=== PATIENT | female | born 1940 | race Hispanic/Latino ===

== ENCOUNTER → 2024-01-21 | Outpatient (CLI) | payer OTHER, MEDICARE ==
[2024-01-21] MEDS: REGADENOSON 0.4 MG/5 ML PF SYG IVP ONE (12:03)
== END | disposition home or self-care (01) ==
LOC: SHCH 08:21
PROVIDERS: ATTEND Internal Medicine Cardiovascular Disease
DX: R07.9 Chest pain, unspecified (principal)
CPT/HCPCS: 78452; 96374; 93017; J2785; A9500 ×2

== ENCOUNTER 2025-04-28 11:35 | Inpatient (IN) | payer OTHER, MEDICARE ==
[~2025-04-28] VITALS: Ht 162.6 cm; Wt 73.8 kg
[2025-04-28 12:19] LABS: IMMATURE GRANULOCYTE ABSOLUTE 0.02 K/uL (0-1); NUCLEATED RED BLOOD CELLS 0.0 % (0.0-0.19); PLATELET COUNT (AUTO) 176 K/uL (130-400); RED BLOOD CELL COUNT(AUTO) 4.24 MIL/uL (4.00-5.50); RED CELL DISTRIBUTION WIDTH 13.2 % (11.0-15.5); WHITE BLOOD COUNT (AUTO) 6.8 K/uL (4.8-10.8)
[2025-04-28] MEDS: 0.9%NACL 1000ML 1,000 ML IV ONE ×2 (12:25→16:12)
[2025-04-28 12:26] LABS: CREATININE 0.9 mg/dL (0.5-1.0); GLOMERULAR FILTR. RATE CALC 62.0 mL/min (>90); GLUCOSE,RANDOM 128.0 mg/dL (70-105); SODIUM SERUM 141.0 mmol/L (136-145); UREA NITROGEN, BLOOD 12.0 mg/dL (7-18)
[2025-04-28 12:47] LABS: APPEARANCE,URINE CLEAR (CLEAR); GLUCOSE, URINE (UA) NEGATIVE (NEGATIVE); LEUKOCYTE ESTERASE ,URINE NEGATIVE Leu/uL (NEGATIVE); NITRATE,URINE NEGATIVE (NEGATIVE); OCCULT BLOOD,URINE LARGE (NEGATIVE)
[2025-04-28 12:48] LABS: RAPID GROUP A STREP negative (NEGATIVE)
[2025-04-28 12:52] LABS: SARS-CoV-2, RNA, NAAT POSITIVE SARS CoV-2 (NEGATIVE)
[2025-04-28 12:53] LABS: ADD UA MICROSCOPIC YES
[2025-04-28 12:55] LABS: SQUAMOUS EPITHELIAL CELL,UR RARE /HPF (0-2)
[2025-04-28 12:58] LABS: INFLUENZA TYPE A Negative For Type A (NEGATIVE); INFLUENZA TYPE B Negative For Type B (NEGATIVE)
--- NOTE | 2025-04-28 13:20 | ERN ---
General Chief Complaint: Other Problems Stated Complaint: COVID Time Seen by MD: 11:36 Source: patient History of Present Illness Initial Comments Patient is a 84-year-old female coming in to be evaluated for fever and cough. Per patient she was exposed to COVID by several family members. Patient also has been having fever and chills. Allergies: Coded Allergies: No Known Drug Allergies (Unverified Allergy, Unknown, 04/28/25) Past Medical History Past Medical History: Hypertension Past Surgical History: Unknown ROS Dictation CONSTITUTIONAL: No chills, fever, weakness, no diaphoresis, no malaise. HEAD/FACE: No signs of trauma. EENT: No eye pain, no blurred vision, no tearing, no double vision, no ear pain, no ear discharge, no nose pain, no nasal congestion, no throat pain, no throat swelling, no mouth pain. RESPIRATORY: cough, no orthopnea, no SOB, no stridor, no wheezing. CARDIOVASCULAR: No chest pain, no edema, no palpitations, no syncope. GASTROINTESTINAL/ABDOMINAL: No abdominal pain, no constipation, no diarrhea, no nausea, no vomiting. GENITOURINARY: No abnormal discharge, no dysuria, no frequent urination, no hematuria. No complaints of pain in the genitals. MUSCULOSKELETAL: No back pain, no gout, no joint pain, no joint swelling, no muscle pain, no muscle stiffness, no neck pain. INTEGUMENTARY: No change in color, no change in hair/nails, no dryness, no lesion, no lumps, no rash. NEUROLOGICAL/PSYCH: No anxiety, not depressed, no emotional problem, no headache, no numbness, no pre-existing deficit, no history of seizures, no tremors, no weakness. HEMATOLOGIC/LYMPHATIC: Not anemic, no history of blood clots, no apparent bl eeding, no bruising, glands not swollen. All Systems Negative, Except as Noted. Physical Exam Physical Exam Dictation VITAL SIGNS: Reviewed. GENERAL APPEARANCE: Alert, oriented x3, no acute distress, obese. HEAD AND FACE: Non-traumatic. EYES: PERRL, pink conjunctivas, eyelid no trauma, anterior chamber clear. EARS: Pinnas intact and no signs of trauma or erythema. Ear canals clear and no discharge. TMs no erythema. NOSE: No discharge, no bleeding. OROPHARYNX: Mouth normal, teeth no caries, tongue pink. Pharynx clear, no erythema. Tonsils no exudates, no abscesses noted. Mucous membrane moist. NECK: Supple, non-tender, no thyromegaly, no masses, no JVD, no bruits. BREAST: Deferred. CHEST: No tenderness, no crepitus, no paradoxical movement, no retractions. LUNGS: Clear, well-ventilated, symmetric, no rales, no wheezing, no rhonchi, no stridor, good breath sounds bilaterally. HEART: Regular rate, regular rhythm, no murmur, no gallops. VASCULAR: No peripheral edema. ABDOMEN: Soft, positive bowel sounds, nondistended, no guarding, nontender, no rebound, no masses no hepatomegaly, no splenomegaly, no Quiroz's sign, no hernias. RECTAL: Deferred. GENITAL: Deferred. NEUROLOGICAL: Normal speech, gross motor function intact, gross sensory function intact. MUSCULOSKELETAL: Neck nontender, full range of motion, back nontender, full ran ge of motion. EXTREMITIES: Nontender, full range of motion. SKIN: Color pink, dry, no turgor, no rash, no lacerations, no abrasions, no contusions. LYMPHATICS: Deferred. Results Laboratory and Microbiology Lab and Micro Result Laboratory Tests Test 04/28/25 12:00 04/28/25 12:09 04/28/25 12:40 Influenza Type A Antigen Negative For Type A Influenza Type B Antigen Negative For Type B SARS-CoV-2, RNA, NAAT POSITIVE SARS CoV-2 Group A Streptococcus Rapid negative (NEGATIVE) White Blood Count 6.8 K/uL (4.8-10.8) Red Blood Count 4.24 MIL/uL (4.00-5.50) Hemoglobin 13.1 g/dL (12.0-16.0) Hematocrit 39.2 % (36-48) Mean Corpuscular Volume 92.5 fL (79-99) Mean Corpuscular Hemoglobin 30.9 pg (27.0-33.0) Mean Corpuscular Hemoglobin Concent 33.4 g/dL (32.0-36.0) Red Cell Distribution Width 13.2 % (11.0-15.5) Platelet Count 176 K/uL (130-400) Mean Platelet Volume 10.5 fL (7.5-10.5) Immature Granulocyte % (Auto) 0.3 % (0-1) Neutrophils (%) (Auto) 68.0 % (40.0-77.0) Lymphocytes (%) (Auto) 22.5 % (21.0-51.0) Monocytes (%) (Auto) 7.9 % (3.0-13.0) Eosinophils (%) (Auto) 0.7 % (0.0-8.0) Basophils (%) (Auto) 0.6 % (0.0-5.0) Neutrophils # (Auto) 4.6 K/uL (1.8-7.7) Lymphocytes # (Auto) 1.5 K/uL (1.0-4.8) Monocytes # (Auto) 0.5 K/uL (0.1-1.0) Eosinophils # (Auto) 0.05 K/uL (0.00-0.70) Basophils # (Auto) 0.04 K/uL (0.00-0.20) Absolute Immature Granulocyte (auto 0.02 K/uL (0-1) Nucleated Red Blood Cells 0.0 % (0.0-0.19) Sodium Level 141 mmol/L (136-145) Potassium Level 3.5 mmol/L (3.5-5.1) Chloride Level 102 mmol/L (101-111) Carbon Dioxide Level 33 mmol/L (21-32) H Blood Urea Nitrogen 12 mg/dL (7-18) Creatinine 0.9 mg/dL (0.5-1.0) Glomerular Filtration Rate Calc 62 mL/min (>90) Random Glucose 128 mg/dL (70-105) H Total Calcium 9.2 mg/dL (8.5-10.1) Troponin I High Sensitivity 18 ng/L (4-50) Urine Color LIGHT-YELLOW (YELLOW) Urine Appearance CLEAR (CLEAR) Urine pH 7.5 (5.0-8.0) Urine Specific [place] 1.011 (1.001-1.031) Urine Protein NEGATIVE mg/dL (NEGATIVE) Urine Glucose (UA) NEGATIVE mg/dL (NEGATIVE) Urine Ketones NEGATIVE mg/dL (NEGATIVE) Urine Occult Blood LARGE (NEGATIVE) H Urine Nitrate NEGATIVE (NEGATIVE) Urine Bilirubin NEGATIVE mg/dL (NEGATIVE) Urine Urobilinogen 0.2 mg/dL (0.2-1.0) Urine Leukocyte Esterase NEGATIVE Ricky/uL Urine RBC 51-100 /HPF (0-1) H Urine WBC 2-5 /HPF (0-1) H Urine Squamous Epithelial Cells RARE /HPF (0-2) Urine Bacteria RARE /HPF (None Seen) Labs Reviewed?: Yes EKG/XRAY/US/CT/MRI EKG Comment 04/28/2025 time 12:16 p.m. Ventricular rate 92 Sinus rhythm [place] [address] wave elevation or depression X-RAY Comment Chest x-ray-mild pulmonary infiltrates suggestive of pneumonitis MDM MDM: Differential diagnosis: Sepsis, sirs, COVID-19, viral pneumonia, Rationale: Tests considered and ordered secondary to shared decision making include: labs, ECG and radiology Previous outside records reviewed: Old ER visits. Risk of complication and/or morbidity or mortality of patient management: None Medications-Per medication reconciliation Need for hospitalization: Patient does meet criteria for hospitalization. Need for emergency major/minor surgery: No There are no social concerns with this patient. Prescription drug management Prescriptions will include symptomatic care Patient's prior external medical records from other ER visits were reviewed by me as indicated. Prior testing and results from previous visits were reviewed. Prior tests were taken into account with medical decision making and resource utilization, independent historian/historians were used to obtain complete medical history. I independently interpreted the test that were performed, results were reviewed by me and considered findings on radiology if ordered. Medical management and examination interpretation discussions were had by me with other qualified healthcare professionals as indicated for the patient's care. She will be admitted under the care of hospitalist group for ongoing management ED Course Orders Procedure Category Date Status Time Cbc With Differential LAB 04/28/25 Complete 11:51 Troponin I High LAB 04/28/25 Complete Sensitivity 11:51 Urinalysis Profile LAB 04/28/25 Complete 11:51 12 Lead Ekg Tracing- EKG 04/28/25 Complete Technical 11:51 0.9%Nacl 1000ml (Ns PHA 04/28/25 Complete 1000ml) 12:00 Chest 1vw RAD 04/28/25 Resulted 11:51 Basic Metabolic Panel LAB 04/28/25 Complete 11:51 Covid Rna Naat LAB 04/28/25 Complete 11:51 Influenza Type A & B, LAB 04/28/25 Complete Rapid 11:51 Rapid (Group A Strep) LAB 04/28/25 Complete 11:51 Acetaminophen 500mg PHA 04/28/25 Complete Tab (Tylenol 500mg T 13:00 Acetaminophen 500mg PHA 04/28/25 Complete Tab (Tylenol 500mg T 13:00 Current Medications Medications (Trade) Dose Ordered Sig/Denia Route PRN Reason Start Time Stop Time Status Last Admin Dose Admin Acetaminophen (TYLenol 500MG TAB) 500 mg STK-MED ONCE .ROUTE 04/28/25 13:00 04/28/25 13:00 DC Acetaminophen (TYLenol 500MG TAB) 1,000 mg ONCE ONCE PO 04/28/25 13:00 04/28/25 13:01 DC 04/28/25 13:01 Sodium Chloride 1,000 ml @ 0 mls/hr ONCE ONCE IV 04/28/25 12:00 04/28/25 12:03 DC 04/28/25 12:25 Vital Signs Date Time Temp Pulse Resp B/P (MAP) Pulse Ox O2 Delivery O2 Flow Rate FiO2 04/28/25 13:07 102.0 102 18 225/82 97 Room Air* 0 21 04/28/25 11:51 100.0 129 18 129/86 93 Room Air DX & DISP Disposition: Inpatient Decision to Admit Time: 13:42 Departure Impression: Primary Impression: COVID-19 Additional Impression: Viral pneumonitis Condition: Stable Referrals: LOIDA SHERMAN MD (PCP) LISA ZIMMER MD Apr 28, 2025 13:20
--- NOTE | 2025-04-28 13:26 | HMCIMG ---
EXAM: XR Chest, 1 View. CLINICAL HISTORY: 84-year-old female with cough. COMPARISON: XR Chest 09/29/2011. FINDINGS: LUNGS: The lungs are clear. No consolidation. PLEURAL SPACES: No pleural effusion or pneumothorax. HEART: The heart size is moderately enlarged. Moderate cardiomegaly. BONES: No acute osseous abnormality. VASCULATURE: Atherosclerotic changes of the aorta. IMPRESSION: 1. Moderate cardiomegaly, similar to prior study. 2. Atherosclerotic aorta. /[place]
--- NOTE | 2025-04-28 13:33 | EKG ---
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
[2025-04-28] MEDS ORDERED: MAGNESIUM 2GM PREMIX 50ML 50 ML IV PRN (14:30)
[2025-04-28] MEDS ORDERED: PoTASSium chloRIDE 20MEQ ER 20 MEQ ERTAB PO PRN (14:30)
[2025-04-28] MEDS ORDERED: PHARMACY COMMUNICATION MISC SCH (14:30)
[2025-04-28] MEDS ORDERED: ALBUTEROL 0.083% 2.5 MG/3 ML INH IH PRN (14:30)
[2025-04-28] MEDS: FAMOTIDINE 20MG VIAL IV SCH (14:31)
[2025-04-28] MEDS ORDERED: HUM100IN SQ (14:52)
[2025-04-28] MEDS ORDERED: DEXTROSE 50%-WATER 50 ML DISP.SYRIN IV PRN (15:00)
[2025-04-28] MEDS ORDERED: GLUCAGON 1MG KIT 1 MG ML IM PRN (15:00)
[2025-04-28] MEDS ORDERED: NITR0.4T50 SL (15:03)
[2025-04-28] MEDS ORDERED: METO-408 PO (15:03)
[2025-04-28] MEDS ORDERED: LEVO25CA5 PO (15:03)
[2025-04-28] MEDS ORDERED: CAPT25TA3 PO (15:03)
[2025-04-28] MEDS ORDERED: ATOR40TA71 PO (15:03)
[2025-04-28] MEDS ORDERED: HYDR10TA PO (15:06)
[2025-04-28] MEDS ORDERED: HYDR5TAB PO (15:06)
--- NOTE | 2025-04-28 15:14 | HP ---
[facility] HISTORY AND PHYSICAL Date of Service: Apr 28, 2025 Time of Service: 14:48 HISTORY OF PRESENT ILLNESS: Patient is a 84-year-old female with past medical history of hypertension, diabetes mellitus type 2 came to the ED with chief complaint of fever and c ough. Patient started having the symptoms since 2 days. Patient had a family gathering 2 weeks ago from which several members of the family got affected with the similar symptoms. Patient has associated chills and mild trouble breathing. patient denies nausea, vomiting, diarrhea, abdominal pain. Patient have not taken her home medication for hypertension today. On presentation to the ED patient vitals are temperature 102, pulse 102, blood pressure 225/82, saturating at 97% on room air patient's labs show WBCs 6.8, hemoglobin 13.1 And chemistries show sodium 141, potassium 3.5, creatinine 0.9, BUN 12, glucose 128, bicarb 33 Patient SARs CoV2 RNA turned out positive Patient's chest x-ray revealed clear lungs and moderate cardiomegaly Patient is being admitted with a diagnosis of COVID, sepsis, hypertensive urgency REVIEW OF SYSTEMS CONSTITUTIONAL: Denies night sweats. No unintentional weight loss reported. Admits to chills, fevers CARDIOVASCULAR: Denies any exertional angina, dyspnea on exertion, orthopnea, paroxysmal nocturnal dyspnea, palpitations, life-threatening arrhythmias, claudication. PULMONARY: Denies any phlegm/sputum, hemoptysis, pleuritic chest pain. Admits to mild shortness of breath, cough GASTROINTESTINAL: Denies any type of dysphagia to either liquids or solids. Denies nausea, vomiting, pyrosis, early satiety, abdominal pain, diarrhea, c onstipation, or changes in stool consistency or caliber. Denies coffee-ground emesis, hematemesis, hematochezia, or melanotic stools. GENITOURINARY: Denies frequency, urgency, nocturia, hematuria or incontinence (Storage/Irritative symptoms.) Low urinary stream, straining to void, urinary intermittency or hesitancy, splitting of the voiding stream, terminal dribbling. ONCOLOGIC: Denies personal history of malignancy. DERMATOLOGIC: Denies rashes or pruritus. PSYCHIATRIC: Denies any suicidal or homicidal ideation. Denies hallucinations. PAST MEDICAL HISTORY: Hypertension, diabetes mellitus type 2 PAST SURGICAL HISTORY: Cholecystectomy, section, pituitary tumor resection PAST SOCIAL HISTORY: Denies smoking and alcohol FAMILY HISTORY: Noncontributory Coded Allergies: No Known Drug Allergies (Unverified Allergy, Unknown, 04/28/25) ceftriaxone (Verified Allergy, Unknown, 04/28/25) metformin (Verified Allergy, Unknown, 04/28/25) morphine (Verified Allergy, Unknown, 04/28/25) sulfamethoxazole (Verified Allergy, Unknown, 04/28/25) trimethoprim (Verified Allergy, Unknown, 04/28/25) PHYSICAL EXAM GENERAL APPEARANCE: The patient is awake, alert, and oriented, in no acute cardiopulmonary distress. CHEST: Normal chest expansion. Telemetry. LUNGS: Absence of any rales, rhonchi or any wheezing. CARDIOVASCULAR: Regular. S1 and S2 normal. No appreciable rubs, murmurs or gallops. ABDOMEN: Soft, nontender, and nondistended. There is no rebound, voluntary guarding, or rigidity. : Deferred. No Trevino. EXTREMITIES: Non-edematous and not cyanotic. No clubbing. Good capillary refill. SKIN: No skin breakdown. Vital Sign (Last 24 Hours) 04/28/25 13:07 Temp 102.0 Pulse 102 Resp 18 B/P (MAP) 225/82 Pulse Ox 97 O2 Delivery Room Air* O2 Flow Rate 0 FiO2 21 LABS: Laboratory: Test 04/28/25 12:40 04/28/25 12:09 04/28/25 12:00 Range/Units Urine Color LIGHT-YELLOW YELLOW Urine Appearance CLEAR CLEAR Urine pH 7.5 5.0-8.0 Urine Specific [place] 1.011 1.001-1.031 Urine Protein NEGATIVE NEGATIVE mg/dL Urine Glucose (UA) NEGATIVE NEGATIVE mg/dL Urine Ketones NEGATIVE NEGATIVE mg/dL Urine Occult Blood LARGE H NEGATIVE Urine Nitrate NEGATIVE NEGATIVE Urine Bilirubin NEGATIVE NEGATIVE mg/dL Urine Urobilinogen 0.2 0.2-1.0 mg/dL Urine Leukocyte Esterase NEGATIVE NEGATIVE Ricky/uL Urine RBC 51-100 H 0-1 /HPF Urine WBC 2-5 H 0-1 /HPF Urine Squamous Epithelial Cells RARE 0-2 /HPF Urine Bacteria RARE None Seen /HPF White Blood Count 6.8 4.8-10.8 K/uL Red Blood Count 4.24 4.00-5.50 MIL/uL Hemoglobin 13.1 12.0-16.0 g/dL Hematocrit 39.2 36-48 % Mean Corpuscular Volume 92.5 79-99 fL Mean Corpuscular Hemoglobin 30.9 27.0-33.0 pg Mean Corpuscular Hemoglobin Concent 33.4 32.0-36.0 g/dL Red Cell Distribution Width 13.2 11.0-15.5 % Platelet Count 176 130-400 K/uL Mean Platelet Volume 10.5 7.5-10.5 fL Immature Granulocyte % (Auto) 0.3 0-1 % Neutrophils (%) (Auto) 68.0 40.0-77.0 % Lymphocytes (%) (Auto) 22.5 21.0-51.0 % Monocytes (%) (Auto) 7.9 3.0-13.0 % Eosinophils (%) (Auto) 0.7 0.0-8.0 % Basophils (%) (Auto) 0.6 0.0-5.0 % Neutrophils # (Auto) 4.6 1.8-7.7 K/uL Lymphocytes # (Auto) 1.5 1.0-4.8 K/uL Monocytes # (Auto) 0.5 0.1-1.0 K/uL Eosinophils # (Auto) 0.05 0.00-0.70 K/uL Basophils # (Auto) 0.04 0.00-0.20 K/uL Absolute Immature Granulocyte (auto 0.02 0-1 K/uL Nucleated Red Blood Cells 0.0 0.0-0.19 % Sodium Level 141 136-145 mmol/L Potassium Level 3.5 3.5-5.1 mmol/L Chloride Level 102 101-111 mmol/L Carbon Dioxide Level 33 H 21-32 mmol/L Blood Urea Nitrogen 12 7-18 mg/dL Creatinine 0.9 0.5-1.0 mg/dL Glomerular Filtration Rate Calc 62 >90 mL/min Random Glucose 128 H 70-105 mg/dL Total Calcium 9.2 8.5-10.1 mg/dL Troponin I High Sensitivity 18 4-50 ng/L Influenza Type A Antigen Negative For Type A NEGATIVE Influenza Type B Antigen Negative For Type B NEGATIVE SARS-CoV-2, RNA, NAAT POSITIVE SARS CoV-2 *A NEGATIVE Group A Streptococcus Rapid negative NEGATIVE Current Medications Medications (Trade) Dose Ordered Sig/Denia Route PRN Reason Start Time Stop Time Status Last Admin Dose Admin Acetaminophen (TYLenol 500MG TAB) 500 mg Q6H PRN PO TEMPERATURE GREATER THAN 100.5 04/28/25 14:30 05/28/25 14:29 Albuterol Sulfate (Proventil 0.083% 2.5mg/3ml) 2.5 mg [id number] PRN IH RESPIRATORY SYMPTOMS 04/28/25 14:30 05/28/25 14:29 Dexamethasone Sodium Phosphate (dexaMETHasone 4MG/ML 1ML VIAL) 6 mg Q24H IV 04/28/25 14:30 05/28/25 14:29 04/28/25 14:30 6 MG Dextrose (D50w) 50 ml AD PRN IV HYPOGLYCEMIA PROTOCOL 04/28/25 15:00 05/28/25 14:59 Famotidine (Pepcid 20mg Vial) 20 mg Q24H IV 04/28/25 15:00 05/28/25 14:59 04/28/25 14:31 20 MG Glucagon (Glucagon 1mg Kit) 1 mg AD PRN IM HYPOGLYCEMIA PROTOCOL 04/28/25 15:00 05/28/25 14:59 Hydralazine HCl (APRESOLine 20MG INJ) 10 mg ONCE IV 04/28/25 14:30 05/28/25 14:29 04/28/25 14:30 10 MG Hydralazine HCl (APRESOLine 20MG INJ) 10 mg Q6H PRN IV ADMINISTER FOR SBP > 180 04/28/25 18:00 05/28/25 17:59 Insulin Human Regular (humuLIN R 100 UNIT/ML 3ML) INSULIN SLIDING SCAL... ACHS SQ 04/28/25 16:30 05/28/25 16:29 Levofloxacin/ Dextrose 50 ml @ 50 mls/hr Q24H IVPB 04/29/25 15:00 05/09/25 14:59 Levofloxacin/ Dextrose 100 ml @ 100 mls/hr Q24H IV 04/28/25 14:30 04/28/25 14:47 DC Magnesium Sulfate 50 ml @ 0 mls/hr PROTOCOL PRN IV mgprotocol 04/28/25 14:30 05/28/25 14:29 Pharmacy Profile Note (Pharmacy Communication) 1 each ONCE MISC 04/28/25 14:30 04/28/25 14:33 DC Potassium Chloride 100 ml @ 50 mls/hr AD PRN IV POTASSIUM PROTOCOL 04/28/25 14:30 05/28/25 14:29 Potassium Chloride 100 ml @ 100 mls/hr AD PRN IV POTASSIUM PROTOCOL 04/28/25 14:30 05/28/25 14:29 Potassium Chloride (K-Dur/Klor-Con 20meq) 20 meq AD PRN PO POTASSIUM PROTOCOL 04/28/25 14:30 05/28/25 14:29 Potassium Chloride (KCl 10% Elixir 20meq/15ml) 20 meq AD PRN PO POTASSIUM PROTOCOL 04/28/25 14:30 05/28/25 14:29 DIAGNOSTICS / RADIOLOGY: IMAGING REPORT Signed PATIENT: IAN LOW MR#: [id number] : 1940 SEX: F AGE: 84 LOCATION: [facility] ORDER 115 STATUS: REG ER REPORT#: [id number] SERVICE 1151 REASON: cough ORDERING PHYSICIAN: LISA ZIMMER MD PROCEDURE: CXR1VW - CHEST 1VW EXAM: XR Chest, 1 View. CLINICAL HISTORY: 84-year-old female with cough. COMPARISON: XR Chest 09/29/2011. FINDINGS: LUNGS: The lungs are clear. No consolidation. PLEURAL SPACES: No pleural effusion or pneumothorax. HEART: The heart size is moderately enlarged. Moderate cardiomegaly. BONES: No acute osseous abnormality. VASCULATURE: Atherosclerotic changes of the aorta. IMPRESSION: 1. Moderate cardiomegaly, similar to prior study. 2. Atherosclerotic aorta. /[place] DICTATED BY: KANDACE ALVAREZ MD DATE: 04/28/251424 ELECTRONICALLY SIGNED BY: KANDACE ALVAREZ MD DATE: 04/28/251424 ASSESSMENT: Sepsis secondary to COVID Hypertensive urgency Acute hypoxemic respiratory failure Hypertension Diabetes mellitus type 2 Pituitary tumor s/p resection PLAN: Patient being admitted to [facility]U Sepsis Secondary to COVID, acute hypoxemic respiratory failure Pulmonology has been consulted on the case Patient is started on levofloxacin Tylenol order for fever as PRN Tessalon 100 mg caps as p.r.n.. ordered for cough Monitor the a.m. labs Follow up with the ABG Maintain oxygen saturation above 92% Nebulizers and inhalers as required Patient is started on dexamethasone 6 mg Q 24 Pharmacy has been communicated for evaluation of remdesivir requirement Hypertensive urgency Patient has not taken her home medications this morning Hydralazine 10 mg IV administered, we will plan to monitor the blood pressure and resume the home medication Hypertension, diabetes mellitus type2 Medication for hypertension will be resumed Patient is placed on hyperglycemia protocol on 1/ sliding scale Pituitary tumor s/p resection Pt will continue on home dose cortef and levothyroxine. will consider stress do se steroids depending on patients clinical status. Patient is started on soft GI diet We will follow up with pending labs GI prophylaxis with famotidine 20 mg IV b.i.d. DVT prophylaxis with the SCDs Further course of hospitalization depending on pulmonology recommendations and interventions and clinical response ATTESTATION BY PHYSICIAN I have seen and examined the patient. I reviewed the documentation, medical decision making, and treatment plan as noted by the resident provider above. I agree with the findings and plan of care. I agree with A&P as stated above. Briefly this 84 year female who presented to the hospital secondary to generalized maliase, cough. She had sick contacts at home who were COVID positive. Pt moted to be hypoxic and was placed in 3 L NC with improvement. Pt noted to have COVID pneumonia and will be started on [id number]. Will request pharmacy for remdesevir.Her home medications will be reconciled. Pt noted gautam hypertensive on presentation and given hydralzine with improvement. Pt also is on Cortef due to history of pituitary tumor resection. Will consider stress dose steroids depending on patients clinical status. Will obtain pulm consultation. Antoine Charles MD, KEERTI K MD Apr 28, 2025 15:14 ANTOINE CHARLES MD Apr 28, 2025 21:44
[2025-04-28 15:18] LABS: ABG BASE EXCESS 4.1 mmol/L (-2.0-3.0); ABG HCO3 27.3 mmol/L (21.0-28.0); ABG OXYGEN SATURATION 96.0 % (94.0-98.0); ABG PCO2 37 mmHg (32-45); ABG PH 7.491 (7.350-7.450); DEVICE COMMENT LRJUAN; PO2, ARTERIAL BG 74.8 mmHg (83.0-108.0); TEMPERATURE, CELSIUS BG 37.0 CELSIUS (35.5-37.0); VENT MODE, BG NC (ROOM AIR)
[2025-04-28] MEDS ORDERED: LISINOPRIL 10 MG TABLET PO SCH (15:30)
[2025-04-28 15:35] VITALS: RESP 18; O2SAT 96
--- NOTE | 2025-04-28 15:35 | NUR ---
DCP:HOME Pt currently lives with rossi [phone] and son. Pt does not have any DME, home health, or provider services. Pt is able to complete ADLs independently. PCP is Dr. Jones Elias and uses [facility] for any RX needs. At [place] pt will want to go home and family can assist with transportation. Addendum: 04/28/25 at 1538 by ASHLEE ARGUETA SS Amended: Links added.
[2025-04-28 18:58] VITALS: PULSE 84; RESP 18; O2SAT 98
[2025-04-28 20:21] VITALS: BP 110/49; PULSE 80; RESP 18; TEMP 98.1
[2025-04-28] MEDS ORDERED: LISINOPRIL 5 MG TABLET PO SCH (21:00)
[2025-04-28] MEDS: LISINOPRIL 10 MG TABLET PO SCH (21:07)
[2025-04-28] MEDS: PoTASSium chl 10% ELIXIR 20MEQ 20 MEQ/15 ML UDCUP PO PRN (21:13)
[2025-04-28] MEDS: BENZONATATE 100 MG CAPSULE PO PRN (21:36)
[2025-04-29] VITALS (26 sets, daily range): BP systolic 102–200; BP diastolic 41–79; PULSE 69–83; RESP 12–20; TEMP 97.7–98.6; O2SAT 97–100
[2025-04-29 05:50] LABS: IMMATURE GRANULOCYTE ABSOLUTE 0.03 K/uL (0-1); NUCLEATED RED BLOOD CELLS 0.0 % (0.0-0.19); PLATELET COUNT (AUTO) 173 K/uL (130-400); RED BLOOD CELL COUNT(AUTO) 3.96 MIL/uL (4.00-5.50); RED CELL DISTRIBUTION WIDTH 13.0 % (11.0-15.5); WHITE BLOOD COUNT (AUTO) 6.6 K/uL (4.8-10.8)
[2025-04-29 06:10] LABS: CREATININE 1.2 mg/dL (0.5-1.0); GLOMERULAR FILTR. RATE CALC 44.0 mL/min (>90); GLUCOSE,RANDOM 290.0 mg/dL (70-105); SODIUM SERUM 140.0 mmol/L (136-145); UREA NITROGEN, BLOOD 19.0 mg/dL (7-18)
--- NOTE | 2025-04-29 07:00 | NUR ---
ASSUMED PATIENT CARE AT THIS TIME
--- NOTE | 2025-04-29 12:58 | HMCIMG ---
CHEST 1VW REASON: Covid Sepsis;R/o fluid overload COMPARISON: Prior study from 04/28/2025 is available. FINDINGS: Single view of the chest was obtained. Lungs are clear. Heart size is normal. There is uncoiling atherosclerotic change of thoracic aorta. There is no pulmonary vascular congestion. Mediastinum and bony thorax appear unremarkable. The bony thorax demonstrate mild osteopenia. There is elevation of the right hemidiaphragm. There is a surgical clips in the right upper quadrant from prior cholecystectomy. IMPRESSION: 1. No evidence of airspace consolidation or pulmonary venous congestion
--- NOTE | 2025-04-29 15:00 | NUR ---
REPORT GIVEN TO AYANNA RUBIO, FARA SENT UP WITH PATIENT
--- NOTE | 2025-04-29 15:51 | CONS ---
[facility] CONSULTATION NOTE Date Patient Seen: Apr 29, 2025 Time of Visit: 15:48 Supervising Physician: Dr. Carlos Reason for Consultation: COVID PROBLEM LIST: Sepsis secondary to COVID Hypertensive urgency Acute hypoxemic respiratory failure Hypertension Diabetes mellitus type 2 Pituitary tumor s/p resection HPI: Patient is an 84-year-old female with a past medical history significant for hypertension, diabetes mellitus type 2, who was admitted by the primary team for sepsis secondary to COVID. Patient is hypoxic, at the time of my evaluation currently on3 L nasal cannula. Patient denies any chest pain, no cough for sputum production. Patient denies any use of oxygen at home. White count today is 6.6, hemoglobin 12.1, renal function normal at 1.2 creatinine today. Patient has already been started on dexamethasone 6 mg, as well as IV levofloxacin. Nebulizers have been added to the chart PRN. Pharmacy has been consulted for Paxlovid treatment. Plan Continue supplemental O2 Continue levofloxacin Continue dexamethasone 6 mg for 10 days Pending pharmacy consultation for Paxlovid requirement Patient may benefit from home O2 if she is ready to discharge prior to being on room air PRN medication for cough PAST MEDICAL HX: see above PAST SURGICAL HX: noncontributory SOCIAL HISTORY: No tobacco, ETOH, or illicit drug use Coded Allergies: No Known Drug Allergies (Unverified Allergy, Unknown, 04/28/25) ceftriaxone (Verified Allergy, Unknown, 04/28/25) metformin (Verified Allergy, Unknown, 04/28/25) morphine (Verified Allergy, Unknown, 04/28/25) sulfamethoxazole (Verified Allergy, Unknown, 04/28/25) trimethoprim (Verified Allergy, Unknown, 04/28/25) REVIEW OF SYSTEMS: 12 point ROS reviewed with patient. Pertinent positives mentioned above. Otherwise negative. PHYSICAL EXAM: GENERAL: alert, weak, awake oriented x 3 HEENT: EOMI, Sclera non icteric, moist mucosa NECK: Supple, no JVD, trachea midline LUNGS: Clear breath sounds bilaterally. No wheezes HEART: Regular rate and rhythm. Normal S1 and S2, without murmurs ABD: Abdomen soft, nontender. Bowel sounds present EXT: No clubbing cyanosis or edema NEURO: Alert and oriented to person, follows commands Vital Signs (last 8hr) Date Time Temp Pulse Resp B/P (MAP) Pulse Ox O2 Delivery O2 Flow Rate FiO2 04/29/25 15:30 71 18 133/53 98 Nasal Cannula 2.0 04/29/25 15:15 78 18 166/64 98 Nasal Cannula 2.0 04/29/25 15:00 98.6 74 18 200/61 98 Nasal Cannula 2.0 04/29/25 14:42 97.9 70 20 176/65 99 Nasal Cannula* 1 24 04/29/25 12:00 97.9 74 19 144/67 95 Nasal Cannula* 1 24 LABS: Hematology Labs: Test 04/29/25 05:41 04/28/25 12:09 Range/Units White Blood Count 6.6 4.8-10.8 K/uL Red Blood Count 3.96 L 4.00-5.50 MIL/uL Hemoglobin 12.1 12.0-16.0 g/dL Hematocrit 37.2 36-48 % Mean Corpuscular Volume 93.9 79-99 fL Mean Corpuscular Hemoglobin 30.6 27.0-33.0 pg Mean Corpuscular Hemoglobin Concent 32.5 32.0-36.0 g/dL Red Cell Distribution Width 13.0 11.0-15.5 % Platelet Count 173 130-400 K/uL Mean Platelet Volume 10.4 7.5-10.5 fL Immature Granulocyte % (Auto) 0.5 0-1 % Neutrophils (%) (Auto) 76.9 40.0-77.0 % Lymphocytes (%) (Auto) 18.8 L 21.0-51.0 % Monocytes (%) (Auto) 3.6 3.0-13.0 % Eosinophils (%) (Auto) 0.0 0.0-8.0 % Basophils (%) (Auto) 0.2 0.0-5.0 % Neutrophils # (Auto) 5.1 1.8-7.7 K/uL Lymphocytes # (Auto) 1.2 1.0-4.8 K/uL Monocytes # (Auto) 0.2 0.1-1.0 K/uL Eosinophils # (Auto) 0.00 0.00-0.70 K/uL Basophils # (Auto) 0.01 0.00-0.20 K/uL Absolute Immature Granulocyte (auto 0.03 0-1 K/uL Nucleated Red Blood Cells 0.0 0.0-0.19 % Erythrocyte Sedimentation Rate 31 H 0-30 MM/HR Chemistry Labs: Test 04/29/25 15:10 04/29/25 12:41 04/29/25 05:41 04/28/25 12:09 Range/Units Whole Blood Glucose 366 H 70-110 MG/DL B-Type Natriuretic Peptide 132 H 0-100 pg/mL Sodium Level 140 136-145 mmol/L Potassium Level 5.3 H 3.5-5.1 mmol/L Chloride Level 104 101-111 mmol/L Carbon Dioxide Level 31 21-32 mmol/L Blood Urea Nitrogen 19 H 7-18 mg/dL Creatinine 1.2 H 0.5-1.0 mg/dL Glomerular Filtration Rate Calc 44 >90 mL/min Random Glucose 290 #H 70-105 mg/dL Total Calcium 8.6 8.5-10.1 mg/dL Hemoglobin A1c 8.7 H 4.0-6.0 % Estimated Average Glucose (eAG) 203 H 70-126 mg/dL Lactic Acid Level 1.3 0.8-2.5 mmol/L Magnesium Level 1.90 1.80-2.40 mg/dL Troponin I High Sensitivity 18 4-50 ng/L C-Reactive Protein, Quantitative 33.30 H 0.5-3.0 mg/L Procalcitonin < 0.05 L 0.05-0.5 ng/mL Thyroid Stimulating Hormone (TSH) 0.31 L 0.36-3.74 uIU/mL DIAGNOSTICS / RADIOLOGY RESULTS: [ ] PLAN NEURO: Minimize central acting medications as possible. Maintain fall precautions, adequate lighting during the day PULMONARY: Supplemental 02 as needed. Maintain aspiration precautions at all times CARDIOVASCULAR: Follow hemodynamics. Vital signs per facility protocol GI & NUTRITION: Continue with nutritional support. Continue stool softeners and laxatives as needed. KIDNEYS & ELECTROLYTES: Strict monitoring of intake, output and overall fluid balance. Avoid nephrotoxic medications to the extent possible. Medications to be dosed according to renal function. Monitor electrolytes and replace as needed ENDOCRINE: Maintain blood glucose between 100-180 at all times. Hypoglycemia protocol in place INFECTIOUS DISEASE: Trend temperature, WBC and procalcitonin level Follow cultures, deescalate antibiotics as soon as possible. Panculture if new onset fever ONCOLOGY/HEMATOLOGY/COAGULATION: Monitor for s/s of bleeding Monitor hemoglobin, coagulation studies as needed SKIN: Pressure ulcer prevention per facility protocol Specialty mattress ORTHO/REHAB: Continue PT/OT Prophylaxis: Continue GI and DVT prophylaxis Code Status: Full Resuscitation Disposition: TBD Other: Total patient care time exceeds 35 minutes excluding all procedures. MATTHEW HAMPTON Apr 29, 2025 15:51
--- NOTE | 2025-04-29 16:57 | PN ---
[facility] PROGRESS NOTE Date of Service: Apr 29, 2025 Time of Service: 16:31 HISTORY OF PRESENT ILLNESS: Patient is a 84-year-old female with past medical history of hypertension, diabetes mellitus type 2 came to the ED with chief complaint of fever and cough. Patient started having the symptoms since 2 days. Patient had a family gathering 2 weeks ago from which several members of the family got affected with the similar symptoms. Patient has associated chills and mild trouble breathing. patient denies nausea, vomiting, diarrhea, abdominal pain. Patient have not taken her home medication for hypertension today. On presentation to the ED patient vitals are temperature 102, pulse 102, blood pressure 225/82, saturating at 97% on room air patient's labs show WBCs 6.8, hemoglobin 13.1 And chemistries show sodium 141, potassium 3.5, creatinine 0.9, BUN 12, glucose 128, bicarb 33 Patient SARs CoV2 RNA turned out positive Patient's chest x-ray revealed clear lungs and moderate cardiomegaly Patient is being admitted with a diagnosis of COVID, sepsis, hypertensive urgency SUBJECTIVE: [ ] 04/29/2025: Patient was seen and examined today at the bedside. Patient was alert and oriented and was not in apparent distress was using 3 L of oxygen via nasal cannula. Patient complained of fever and cough ongoing for 2 days and several sick contacts in her family who tested positive for COVID-19. Denies chills, body aches, nausea, vomiting, diarrhea, and abdominal pain. Patient's blood pressure was 225/52, temperature 102, pulse 102 upon admission. Was administered IV hydralazine that controlled her blood pressure last night. Later this morning her blood pressure dropped to 95/61 and respiratory rate of 22. Patient was started on her home medications. Patient was weaned off oxygen however her oxygen saturation fell to 95%. She was reinstated on 2 L of oxygen via nasal cannula. A repeat chest x-ray was unremarkable no signs of fluid overload. Pedal edema was noted in bilateral feet and BNP was ordered. 40 mg of p.o. potassium was given as per protocol in the ED and later serum potassium was 5.3, a repeat BMP was ordered. A respiratory therapist evaluation was ordered for 6 minute walk test. REVIEW OF SYSTEMS CONSTITUTIONAL: Denies night sweats. No unintentional weight loss reported. Admits to chills, fevers CARDIOVASCULAR: Denies any exertional angina, dyspnea on exertion, orthopnea, paroxysmal nocturnal dyspnea, palpitations, life-threatening arrhythmias, claudication. PULMONARY: Denies any phlegm/sputum, hemoptysis, pleuritic chest pain. Admits to mild shortness of breath, cough GASTROINTESTINAL: Denies any type of dysphagia to either liquids or solids. Denies nausea, vomiting, pyrosis, early satiety, abdominal pain, diarrhea, constipation, or changes in stool consistency or caliber. Denies coffee-ground emesis, hematemesis, hematochezia, or melanotic stools. GENITOURINARY: Denies frequency, urgency, nocturia, hematuria or incontinence (Storage/Irritative symptoms.) Low urinary stream, straining to void, urinary intermittency or hesitancy, splitting of the voiding stream, terminal dribbling. ONCOLOGIC: Denies personal history of malignancy. DERMATOLOGIC: Denies rashes or pruritus. PSYCHIATRIC: Denies any suicidal or homicidal ideation. Denies hallucinations. PHYSICAL EXAM GENERAL APPEARANCE: The patient is awake, alert, and oriented, in no acute cardiopulmonary distress. CHEST: Normal chest expansion. Telemetry. LUNGS: Absence of any rales, rhonchi or any wheezing. CARDIOVASCULAR: Regular. S1 and S2 normal. No appreciable rubs, murmurs or gallops. ABDOMEN: Soft, nontender, and nondistended. There is no rebound, voluntary g uarding, or rigidity. : Deferred. No Trevino. EXTREMITIES: Non-edematous and not cyanotic. No clubbing. Good capillary refill. SKIN: No skin breakdown. Vital Signs (last 8hr) Date Time Temp Pulse Resp B/P (MAP) Pulse Ox O2 Delivery O2 Flow Rate FiO2 04/29/25 15:30 71 18 133/53 98 Nasal Cannula 2.0 04/29/25 15:15 78 18 166/64 98 Nasal Cannula 2.0 04/29/25 15:00 99 Nasal Cannula* 2 28 04/29/25 15:00 98.6 74 18 200/61 98 Nasal Cannula 2.0 04/29/25 14:42 97.9 70 20 176/65 99 Nasal Cannula* 1 24 04/29/25 12:00 97.9 74 19 144/67 95 Nasal Cannula* 1 24 LABS: Laboratory: Test 04/29/25 15:10 04/29/25 12:41 04/29/25 05:41 04/28/25 15:16 Range/Units Whole Blood Glucose 366 H 70-110 MG/DL B-Type Natriuretic Peptide 132 H 0-100 pg/mL White Blood Count 6.6 4.8-10.8 K/uL Red Blood Count 3.96 L 4.00-5.50 MIL/uL Hemoglobin 12.1 12.0-16.0 g/dL Hematocrit 37.2 36-48 % Mean Corpuscular Volume 93.9 79-99 fL Mean Corpuscular Hemoglobin 30.6 27.0-33.0 pg Mean Corpuscular Hemoglobin Concent 32.5 32.0-36.0 g/dL Red Cell Distribution Width 13.0 11.0-15.5 % Platelet Count 173 130-400 K/uL Mean Platelet Volume 10.4 7.5-10.5 fL Immature Granulocyte % (Auto) 0.5 0-1 % Neutrophils (%) (Auto) 76.9 40.0-77.0 % Lymphocytes (%) (Auto) 18.8 L 21.0-51.0 % Monocytes (%) (Auto) 3.6 3.0-13.0 % Eosinophils (%) (Auto) 0.0 0.0-8.0 % Basophils (%) (Auto) 0.2 0.0-5.0 % Neutrophils # (Auto) 5.1 1.8-7.7 K/uL Lymphocytes # (Auto) 1.2 1.0-4.8 K/uL Monocytes # (Auto) 0.2 0.1-1.0 K/uL Eosinophils # (Auto) 0.00 0.00-0.70 K/uL Basophils # (Auto) 0.01 0.00-0.20 K/uL Absolute Immature Granulocyte (auto 0.03 0-1 K/uL Nucleated Red Blood Cells 0.0 0.0-0.19 % Sodium Level 140 136-145 mmol/L Potassium Level 5.3 H 3.5-5.1 mmol/L Chloride Level 104 101-111 mmol/L Carbon Dioxide Level 31 21-32 mmol/L Blood Urea Nitrogen 19 H 7-18 mg/dL Creatinine 1.2 H 0.5-1.0 mg/dL Glomerular Filtration Rate Calc 44 >90 mL/min Random Glucose 290 #H 70-105 mg/dL Total Calcium 8.6 8.5-10.1 mg/dL Blood Gas Specimen Type Arterial Arterial Blood pH 7.491 H 7.350-7.450 Arterial Blood Partial Pressure CO2 37 32-45 mmHg Arterial Blood Partial Pressure O2 74.8 L 83.0-108.0 mmHg Arterial Blood HCO3 27.3 21.0-28.0 mmol/L Arterial Blood Oxygen Saturation 96.0 94.0-98.0 % Arterial Blood Base Excess 4.1 H -2.0-3.0 mmol/L Blood Gas Temperature 37.0 35.5-37.0 CELSIUS Blood Gas Flow-by 3.00 0.00-15.00 L/min Blood Gas Vent Mode NC ROOM AIR FiO2 32.0 % Blood Gas Specimen Comment LRJUAN Test 04/28/25 12:40 04/28/25 12:09 04/28/25 12:00 Range/Units Urine Color LIGHT-YELLOW YELLOW Urine Appearance CLEAR CLEAR Urine pH 7.5 5.0-8.0 Urine Specific Simon 1.011 1.001-1.031 Urine Protein NEGATIVE NEGATIVE mg/dL Urine Glucose (UA) NEGATIVE NEGATIVE mg/dL Urine Ketones NEGATIVE NEGATIVE mg/dL Urine Occult Blood LARGE H NEGATIVE Urine Nitrate NEGATIVE NEGATIVE Urine Bilirubin NEGATIVE NEGATIVE mg/dL Urine Urobilinogen 0.2 0.2-1.0 mg/dL Urine Leukocyte Esterase NEGATIVE NEGATIVE Ricky/uL Urine RBC 51-100 H 0-1 /HPF Urine WBC 2-5 H 0-1 /HPF Urine Squamous Epithelial Cells RARE 0-2 /HPF Urine Bacteria RARE None Seen /HPF Erythrocyte Sedimentation Rate 31 H 0-30 MM/HR Hemoglobin A1c 8.7 H 4.0-6.0 % Estimated Average Glucose (eAG) 203 H 70-126 mg/dL Lactic Acid Level 1.3 0.8-2.5 mmol/L Magnesium Level 1.90 1.80-2.40 mg/dL Troponin I High Sensitivity 18 4-50 ng/L C-Reactive Protein, Quantitative 33.30 H 0.5-3.0 mg/L Procalcitonin < 0.05 L 0.05-0.5 ng/mL Thyroid Stimulating Hormone (TSH) 0.31 L 0.36-3.74 uIU/mL Influenza Type A Antigen Negative For Type A NEGATIVE Influenza Type B Antigen Negative For Type B NEGATIVE SARS-CoV-2, RNA, NAAT POSITIVE SARS CoV-2 *A NEGATIVE Group A Streptococcus Rapid negative NEGATIVE Current Medications Medications (Trade) Dose Ordered Sig/Denia Route PRN Reason Start Time Stop Time Status Last Admin Dose Admin Acetaminophen (TYLenol 500MG TAB) 500 mg Q6H PRN PO TEMPERATURE GREATER THAN 100.5 04/28/25 14:30 05/28/25 14:29 04/28/25 21:08 500 MG Albuterol Sulfate (Proventil 0.083% 2.5mg/3ml) 2.5 mg [id number] PRN IH RESPIRATORY SYMPTOMS 04/28/25 14:30 05/28/25 14:29 Atorvastatin Calcium (LIPItor 40MG) 40 mg HS PO 04/28/25 21:00 05/28/25 20:59 04/28/25 21:07 40 MG Benzonatate (Tessalon 100mg Caps) 100 mg Q8H PRN PO COUGH 04/28/25 15:30 05/28/25 15:29 04/29/25 09:28 100 MG Dexamethasone Sodium Phosphate (dexaMETHasone 4MG/ML 1ML VIAL) 6 mg Q24H IV 04/28/25 14:30 05/28/25 14:29 04/29/25 15:20 6 MG Dextrose (D50w) 50 ml AD PRN IV HYPOGLYCEMIA PROTOCOL 04/28/25 15:00 05/28/25 14:59 Enoxaparin Sodium (Lovenox) 30 mg DAILY SQ 04/30/25 09:00 05/30/25 08:59 Famotidine (Pepcid 20mg Vial) 20 mg Q24H IV 04/28/25 15:00 05/28/25 14:59 04/29/25 15:20 20 MG Glucagon (Glucagon 1mg Kit) 1 mg AD PRN IM HYPOGLYCEMIA PROTOCOL 04/28/25 15:00 05/28/25 14:59 Home Med (Home Medication) 5 each HS PO 04/28/25 21:00 05/28/25 20:59 04/28/25 21:00 5 EACH Hydralazine HCl (APRESOLine 20MG INJ) 10 mg ONCE IV 04/28/25 14:30 04/28/25 15:54 DC 04/28/25 14:30 10 MG Hydralazine HCl (APRESOLine 20MG INJ) 10 mg Q6H PRN IV ADMINISTER FOR SBP > 180 04/28/25 18:00 05/28/25 17:59 04/29/25 15:23 10 MG Hydrocortisone (corTEF 20MG TAB) 10 mg DAILY PO 04/29/25 09:00 05/29/25 08:59 04/29/25 09:27 10 MG Insulin Human Regular (humuLIN R 100 UNIT/ML 3ML) INSULIN SLIDING SCAL... ACHS SQ 04/28/25 16:30 05/28/25 16:29 04/29/25 15:23 8 UNIT Levofloxacin/ Dextrose 50 ml @ 50 mls/hr Q24H IVPB 04/29/25 15:00 05/09/25 14:59 04/29/25 15:20 50 MLS/HR Levofloxacin/ Dextrose 100 ml @ 100 mls/hr Q24H IV 04/28/25 14:30 04/28/25 14:47 DC Levothyroxine Sodium (SYNTHroid 25MCG TAB) 25 mcg SYN PO 04/29/25 06:30 05/29/25 06:29 04/29/25 06:38 25 MCG Lisinopril (Prinivil 10mg) 10 mg BID PO 04/28/25 15:30 04/28/25 15:50 DC Lisinopril (Prinivil 10mg) 10 mg BID PO 04/28/25 21:00 05/28/25 20:59 Hold 04/28/25 21:07 10 MG Lisinopril (Prinivil 5mg) 5 mg BID PO 04/28/25 21:00 04/28/25 15:24 DC Magnesium Sulfate 50 ml @ 0 mls/hr PROTOCOL PRN IV mgprotocol 04/28/25 14:30 05/28/25 14:29 Metoprolol Succinate (TopROL XL) 25 mg DAILY PO 04/29/25 09:00 05/29/25 08:59 04/29/25 09:28 25 MG Pharmacy Profile Note (Pharmacy Communication) 1 each ONCE MISC 04/28/25 14:30 04/28/25 14:33 DC Potassium Chloride 100 ml @ 50 mls/hr AD PRN IV POTASSIUM PROTOCOL 04/28/25 14:30 05/28/25 14:29 Potassium Chloride 100 ml @ 100 mls/hr AD PRN IV POTASSIUM PROTOCOL 04/28/25 14:30 05/28/25 14:29 Potassium Chloride (K-Dur/Klor-Con 20meq) 20 meq AD PRN PO POTASSIUM PROTOCOL 04/28/25 14:30 05/28/25 14:29 Potassium Chloride (KCl 10% Elixir 20meq/15ml) 20 meq AD PRN PO POTASSIUM PROTOCOL 04/28/25 14:30 05/28/25 14:29 04/28/25 23:20 20 MEQ DIAGNOSTICS / RADIOLOGY: [ ] PATIENT: IAN LOW MR#: [id number] : 1940 SEX: F AGE: 84 LOCATION: [facility] ORDER 122 STATUS: ADM IN REPORT#: [id number] SERVICE [id number] REASON: Covid Sepsis;R/o fluid overload ORDERING PHYSICIAN: DANIKA HUDSON MD PROCEDURE: CXR1VW - CHEST 1VW CHEST 1VW REASON: Covid Sepsis;R/o fluid overload COMPARISON: Prior study from 04/28/2025 is available. FINDINGS: Single view of the chest was obtained. Lungs are clear. Heart size is normal. There is uncoiling atherosclerotic change of thoracic aorta. There is no pulmonary vascular congestion. Mediastinum and bony thorax appear unremarkable. The bony thorax demonstrate mild osteopenia. There is elevation of the right hemidiaphragm. There is a surgical clips in the right upper quadrant from prior cholecystectomy. IMPRESSION: 1. No evidence of airspace consolidation or pulmonary venous congestion DICTATED BY: ELMIRA BELTRE MD DATE: 04/29/251253 ELECTRONICALLY SIGNED BY: ELMIRA BELTRE MD DATE: 04/29/251257 ASSESSMENT: Sepsis secondary to COVID Hypertensive urgency Acute hypoxemic respiratory failure Hypertension Diabetes mellitus type 2 Pituitary tumor s/p resection PLAN: Patient being admitted to [facility] Sepsis Secondary to COVID, acute hypoxemic respiratory failure Pulmonology has been consulted on the case Patient is started on levofloxacin Tylenol order for fever as PRN Tessalon 100 mg caps as p.r.n.. ordered for cough Monitor the a.m. labs Follow up with the ABG Maintain oxygen saturation above 92% Nebulizers and inhalers as required Patient is started on dexamethasone 6 mg Q 24 Pharmacy has been communicated for evaluation of remdesivir requirement RT evaluation ordered for 6 minute walk test Hypertensive urgency Patient has not taken her home medications this morning Hydralazine 10 mg IV administered Hypertension, diabetes mellitus type2 Continue lisinopril 10 mg b.i.d. Medication for hypertension will be resumed Patient is placed on hyperglycemia protocol on / sliding scale Pituitary tumor s/p resection Pt will continue on home dose levothyroxine. Start Cortef 20 mg once daily Patient is started on soft GI diet We will follow up with pending labs GI prophylaxis with famotidine 20 mg IV b.i.d. DVT prophylaxis with the SCDs Further course of hospitalization depending on pulmonology recommendations and interventions and clinical response ATTESTATION BY PHYSICIAN I have seen and examined the patient. I reviewed the documentation, medical decision making, and treatment plan as noted by the resident provider above. I agree with the findings and plan of care. JANET LI MD, HARSHAVARDHA MD Apr 29, 2025 16:57
[2025-04-29 18:46] LABS: CREATININE 1.0 mg/dL (0.5-1.0); GLOMERULAR FILTR. RATE CALC 55.0 mL/min (>90); GLUCOSE,RANDOM 323.0 mg/dL (70-105); SODIUM SERUM 139.0 mmol/L (136-145); UREA NITROGEN, BLOOD 23.0 mg/dL (7-18)
[2025-04-30] VITALS (21 sets, daily range): BP systolic 102–186; BP diastolic 44–80; PULSE 67–86; RESP 9–32; TEMP 97.8–98.4; O2SAT 94–98
[2025-04-30 04:32] LABS: CREATINE KINASE, TOTAL 141.0 U/L (21-232); PHOSPHORUS 2.9 mg/dL (2.5-4.9)
[2025-04-30] MEDS: ENOXAPARIN SODIUM 30 MG/0.3 ML SQ SCH (08:24)
--- NOTE | 2025-04-30 08:41 | PN ---
[facility] PROGRESS NOTE Date Patient Seen: Apr 30, 2025 Time of Visit: 08:41 Supervising Physician: Angel Carlos MD Supervising Physician: Dr. Carlos Reason for Consultation: COVID PROBLEM LIST: Sepsis secondary to COVID Hypertensive urgency Acute hypoxemic respiratory failure Hypertension Diabetes mellitus type 2 Pituitary tumor s/p resection INTERVAL HISTORY: Date of admission: 04/28/25 Hospital Day: 2. PCCU status Code status: Full code Nutrition: GI soft diet Isolation: COVID isolation Overnight events: No acute events overnight. Cardene has been turned off. Blood pressure improving. Decadron has been discontinued and Patient is on hydrocortisone 85 mg p.o. 3 times a day per [employer] team member. We will follow his recommendations. Patient's glucose has been elevated with a max of 338 mg/dL this morning, added Lantus 10 units subQ b.i.d. Patient is not on supplemental O2 support. Currently at room air saturating 97% respiratory rate of 16 unlabored. Subjective complaints: She is awake alert and oriented x3. Denies any chest pain, headache, palpitations, or shortness for breath. There is no family at the bedside at the time of my visit. She may be downgraded to medical-surgical floor. REVIEW OF SYSTEMS: General: No malaise or fever. Neurological: No fainting episodes or seizures. HEENT: No nasal congestion or nasal secretion. Respiratory: No cough, shortness of breath, or wheezing Cardiac: No chest pain or palpitations. Gastrointestinal: No vomiting or diarrhea. Genitourinary: No dysuria hematuria. Skin: No rashes or lesions. Hematological: No bruises or bleeding. Musculoskeletal: No joint pains or arthralgias. Psychiatric: No depression or panic attacks. PHYSICAL EXAM: GENERAL: alert, weak, awake oriented x 3 HEENT: EOMI, Sclera non icteric, moist mucosa NECK: Supple, no JVD, trachea midline LUNGS: Clear breath sounds bilaterally. No wheezes HEART: Regular rate and rhythm. Normal S1 and S2, without murmurs ABD: Abdomen soft, nontender. Bowel sounds present EXT: No clubbing cyanosis or edema NEURO: Alert and oriented to person, follows commands Vital Signs (last 8hr) Date Time Temp Pulse Resp B/P (MAP) Pulse Ox O2 Delivery O2 Flow Rate FiO2 04/30/25 06:30 79 18 N/Cannula Low lpm 3.0 32 8/15/25 04:41 69 14 152/55 100 Nasal Cannula 2.0 04/30/25 04:00 98.2 67 15 99 04/30/25 03:41 75 20 168/64 99 Nasal Cannula 2.0 04/30/25 03:00 69 28 99 04/30/25 02:41 71 32 147/60 99 Nasal Cannula 2.0 04/30/25 02:11 70 15 168/61 99 Nasal Cannula 2.0 04/30/25 02:00 74 14 98 04/30/25 01:00 69 14 99 04/30/25 00:56 71 18 142/55 99 LABS: Hematology Labs: Test 04/29/25 05:41 04/28/25 12:09 Range/Units White Blood Count 6.6 4.8-10.8 K/uL Red Blood Count 3.96 L 4.00-5.50 MIL/uL Hemoglobin 12.1 12.0-16.0 g/dL Hematocrit 37.2 36-48 % Mean Corpuscular Volume 93.9 79-99 fL Mean Corpuscular Hemoglobin 30.6 27.0-33.0 pg Mean Corpuscular Hemoglobin Concent 32.5 32.0-36.0 g/dL Red Cell Distribution Width 13.0 11.0-15.5 % Platelet Count 173 130-400 K/uL Mean Platelet Volume 10.4 7.5-10.5 fL Immature Granulocyte % (Auto) 0.5 0-1 % Neutrophils (%) (Auto) 76.9 40.0-77.0 % Lymphocytes (%) (Auto) 18.8 L 21.0-51.0 % Monocytes (%) (Auto) 3.6 3.0-13.0 % Eosinophils (%) (Auto) 0.0 0.0-8.0 % Basophils (%) (Auto) 0.2 0.0-5.0 % Neutrophils # (Auto) 5.1 1.8-7.7 K/uL Lymphocytes # (Auto) 1.2 1.0-4.8 K/uL Monocytes # (Auto) 0.2 0.1-1.0 K/uL Eosinophils # (Auto) 0.00 0.00-0.70 K/uL Basophils # (Auto) 0.01 0.00-0.20 K/uL Absolute Immature Granulocyte (auto 0.03 0-1 K/uL Nucleated Red Blood Cells 0.0 0.0-0.19 % Erythrocyte Sedimentation Rate 31 H 0-30 MM/HR Chemistry Labs: Test 04/30/25 08:09 04/30/25 03:59 04/29/25 17:35 04/29/25 12:41 Range/Units Whole Blood Glucose 338 H 70-110 MG/DL Phosphorus Level 2.9 2.5-4.9 mg/dL Magnesium Level 2.30 1.80-2.40 mg/dL Total Creatine Kinase 141 21-232 U/L Sodium Level 139 136-145 mmol/L Potassium Level 4.4 3.5-5.1 mmol/L Chloride Level 104 101-111 mmol/L Carbon Dioxide Level 29 21-32 mmol/L Blood Urea Nitrogen 23 H 7-18 mg/dL Creatinine 1.0 0.5-1.0 mg/dL Glomerular Filtration Rate Calc 55 >90 mL/min Random Glucose 323 H 70-105 mg/dL Total Calcium 9.0 8.5-10.1 mg/dL B-Type Natriuretic Peptide 132 H 0-100 pg/mL Test 04/28/25 12:09 Range/Units Hemoglobin A1c 8.7 H 4.0-6.0 % Estimated Average Glucose (eAG) 203 H 70-126 mg/dL Lactic Acid Level 1.3 0.8-2.5 mmol/L Troponin I High Sensitivity 18 4-50 ng/L C-Reactive Protein, Quantitative 33.30 H 0.5-3.0 mg/L Procalcitonin < 0.05 L 0.05-0.5 ng/mL Thyroid Stimulating Hormone (TSH) 0.31 L 0.36-3.74 uIU/mL DIAGNOSTICS / RADIOLOGY RESULTS: [place] [address] [address] IMAGING REPORT Signed PATIENT: IAN CARLOS MR#: [id number] : 1940 SEX: F AGE: 84 LOCATION: [facility] ORDER 1221 STATUS: ADM IN REPORT#: [id number] SERVICE 1217 REASON: Covid Sepsis;R/o fluid overload ORDERING PHYSICIAN: DANIKA HUDSON MD PROCEDURE: CXR1VW - CHEST 1VW CHEST 1VW REASON: Covid Sepsis;R/o fluid overload COMPARISON: Prior study from 04/28/2025 is available. FINDINGS: Single view of the chest was obtained. Lungs are clear. Heart size is normal. There is uncoiling atherosclerotic change of thoracic aorta. There is no pulmonary vascular congestion. Mediastinum and bony thorax appear unremarkable. The bony thorax demonstrate mild osteopenia. There is elevation of the right hemidiaphragm. There is a surgical clips in the right upper quadrant from prior cholecystectomy. IMPRESSION: 1. No evidence of airspace consolidation or pulmonary venous congestion DICTATED BY: ELMIRA BELTRE MD DATE: 04/29/251253 ELECTRONICALLY SIGNED BY: ELMIRA BELTRE MD DATE: 04/29/251257 PLAN NEURO: Minimize central acting medications as possible. Fall Precautions. Well lighted room through the day and minimize interruptions through the night to prevent acute delirium. PULMONARY: Supplemental 02 as needed Titrate Fio2 to keep Spo2 > or = 90% DuoNebs and CPT as needed IS hourly while awake for pulmonary hygiene Out of bed to chair as tolerated CARDIOVASCULAR: Follow hemodynamics. Titrate vasopressor to keep MAP >65 or systolic blood pressure >95mmHg DRIPS: none LINES: PIV GI & NUTRITION: Continue nutritional support Aspirations precautions Prokinetic agents and laxatives as needed KIDNEYS & ELECTROLYTES: Strict monitoring of intake and output Daily weights Avoid nephrotoxic agents Monitor electrolytes and replace as needed Goal urine output of 30mL/hr or 0.5mL/kg/hr ENDOCRINE: Maintain blood glucose between 100-180 at all times. Insulin sliding scale for blood glucose management INFECTIOUS DISEASE: Trend temperature. Ott-culture if febrile. Micro: COVID-19 positive Antibiotics: Levaquin HEMATOLOGY & COAGULATION: Monitor H&H. Keep Hgb > 7 Transfuse 1 unit of PRBC for Hgb < 7 Transfuse 1 pack of platelets of platelets < 20, 000 Watch for any signs and symptoms of bleeding SKIN: Pressure ulcer prevention per facility protocol Rehab: PT/OT Prophylaxis: GI: Pepcid DVT: Lovenox Code Status: Full Resuscitation Disposition: Medical floor Other: Total patient care time exceeds 35 minutes excluding all procedures. Case was discussed and seen with my supervising physician. The above plan was formulated and agreed upon. ATTESTATION BY PHYSICIAN The patient has been seen and evaluated, the case has been discussed with the COST RECORDER, I agree with the clinical findings and plan of care. Angel Carlos MD, [facility] Apr 30, 2025 08:41
[2025-04-30] MEDS: amLODIPine 5 MG TAB PO SCH (08:53)
[2025-04-30] MEDS: LISINOPRIL 10 MG TABLET PO SCH ×2 (08:53→20:23)
--- NOTE | 2025-04-30 09:46 | NUR ---
[facility] ICU Skin Assessment: Patient assessed by wound healing team. Patient with no wounds or skin breakdown noted, blanchable redness to buttocks. Assessment and recommendations provided to primary nurse. Education provided. Addendum: 04/30/25 at 1106 by ELOINA BEJARANO RN RN/ Amended: Links added.
--- NOTE | 2025-04-30 11:46 | NUR ---
consulted dr maria a wright via telephone message left with analytical research program manager wally no orders were given as per wally she would let dr saha about his new consult for patient in room 217
--- NOTE | 2025-04-30 13:07 | PN ---
[facility] PROGRESS NOTE Date of Service: Apr 30, 2025 Time of Service: 12:47 HISTORY OF PRESENT ILLNESS: Patient is a 84-year-old female with past medical history of hypertension, diabetes mellitus type 2 came to the ED with chief complaint of fever and cough. Patient started having the symptoms since 2 days. Patient had a family gathering 2 weeks ago from which several members of the family got affected with the similar symptoms. Patient has associated chills and mild trouble breathing. patient denies nausea, vomiting, diarrhea, abdominal pain. Patient have not taken her home medication for hypertension today. On presentation to the ED patient vitals are temperature 102, pulse 102, blood pressure 225/82, saturating at 97% on room air patient's labs show WBCs 6.8, hemoglobin 13.1 And chemistries show sodium 141, potassium 3.5, creatinine 0.9, BUN 12, glucose 128, bicarb 33 Patient SARs CoV2 RNA turned out positive Patient's chest x-ray revealed clear lungs and moderate cardiomegaly Patient is being admitted with a diagnosis of COVID, sepsis, hypertensive urgency SUBJECTIVE: [ ] 04/29/2025: Patient was seen and examined today at the bedside. Patient was alert and oriented and was not in apparent distress was using 3 L of oxygen via nasal cannula. Patient complained of fever and cough ongoing for 2 days and several sick contacts in her family who tested positive for COVID-19. Denies chills, body aches, nausea, vomiting, diarrhea, and abdominal pain. Patient's blood pressure was 225/52, temperature 102, pulse 102 upon admission. Was administered IV hydralazine that controlled her blood pressure last night. Later this morning her blood pressure dropped to 95/61 and respiratory rate of 22. Patient was started on her home medications. Patient was weaned off oxygen however her oxygen saturation fell to 95%. She was reinstated on 2 L of oxygen via nasal cannula. A repeat chest x-ray was unremarkable no signs of fluid overload. Pedal edema was noted in bilateral feet and BNP was ordered. 40 mg of p.o. potassium was given as per protocol in the ED and later serum potassium was 5.3, a repeat BMP was ordered. A respiratory therapist evaluation was ordered for 6 minute walk test. 04/30/2025: Patient was seen and evaluated at the bedside. Patient was alert and oriented, using 2L of oxygen via nasal cannula. Patient is saturating well at 95%. Patient had persistently elevated hypertension for which a dose of hydralazine was administered. She was reinstated on her home blood pressure medications with lisinopril, amlodipine, metoprolol. Patient was weaned off oxygen and her saturation was maintained when awake however when the patient was asleep her oxygen drops to 89-90% without oxygen. Patient is status post pituitary resection on Cortef 15 mg at home. Due to the acute stress due to COVID, hospitalization we initiated stress dose of Cortef 75 mg divided into 3 doses in a day. Dexamethasone was stopped. Urinalysis showed large occult blood, negative for leukocyte esterase and pus cells. We ordered a CT abdomen and pelvis. Today an endocrinology consult was placed. Patient will also be evaluated by respiratory therapist with a 6 minute walk test and we will consider her for discharge. REVIEW OF SYSTEMS CONSTITUTIONAL: Denies night sweats. No unintentional weight loss reported. Admits to chills, fevers, now improved. CARDIOVASCULAR: Denies any exertional angina, dyspnea on exertion, orthopnea, paroxysmal nocturnal dyspnea, palpitations, life-threatening arrhythmias, pat dication. PULMONARY: Denies any phlegm/sputum, hemoptysis, pleuritic chest pain. Admits to mild shortness of breath, cough, improved GASTROINTESTINAL: Denies any type of dysphagia to either liquids or solids. Denies nausea, vomiting, pyrosis, early satiety, abdominal pain, diarrhea, constipation, or changes in stool consistency or caliber. Denies coffee-ground emesis, hematemesis, hematochezia, or melanotic stools. GENITOURINARY: Denies frequency, urgency, nocturia, hematuria or incontinence (Storage/Irritative symptoms.) Low urinary stream, straining to void, urinary intermittency or hesitancy, splitting of the voiding stream, terminal dribbling. ONCOLOGIC: Denies personal history of malignancy. DERMATOLOGIC: Denies rashes or pruritus. PSYCHIATRIC: Denies any suicidal or homicidal ideation. Denies hallucinations. PHYSICAL EXAM GENERAL APPEARANCE: The patient is awake, alert, and oriented, in no acute cardiopulmonary distress. CHEST: Normal chest expansion. Telemetry. LUNGS: Absence of any rales, rhonchi or any wheezing. CARDIOVASCULAR: Regular. S1 and S2 normal. No appreciable rubs, murmurs or gallops. ABDOMEN: Soft, nontender, and nondistended. There is no rebound, voluntary guarding, or rigidity. : Deferred. No Trevino. EXTREMITIES: Non-edematous and not cyanotic. No clubbing. Good capillary refill. SKIN: No skin breakdown. Vital Signs (last 8hr) Date Time Temp Pulse Resp B/P (MAP) Pulse Ox O2 Delivery O2 Flow Rate FiO2 04/30/25 09:00 74 14 127/49 95 Nasal Cannula 2.0 04/30/25 08:00 97 Nasal Cannula* 2 28 04/30/25 08:00 97.9 75 15 175/66 99 Nasal Cannula 2.0 04/30/25 07:00 86 18 186/80 98 Nasal Cannula 2.0 04/30/25 06:30 79 18 N/Cannula Low lpm 3.0 32 LABS: Laboratory: Test 04/30/25 12:23 04/30/25 03:59 04/29/25 17:35 04/29/25 12:41 Range/Units Whole Blood Glucose 293 H 70-110 MG/DL Phosphorus Level 2.9 2.5-4.9 mg/dL Magnesium Level 2.30 1.80-2.40 mg/dL Total Creatine Kinase 141 21-232 U/L Sodium Level 139 136-145 mmol/L Potassium Level 4.4 3.5-5.1 mmol/L Chloride Level 104 101-111 mmol/L Carbon Dioxide Level 29 21-32 mmol/L Blood Urea Nitrogen 23 H 7-18 mg/dL Creatinine 1.0 0.5-1.0 mg/dL Glomerular Filtration Rate Calc 55 >90 mL/min Random Glucose 323 H 70-105 mg/dL Total Calcium 9.0 8.5-10.1 mg/dL B-Type Natriuretic Peptide 132 H 0-100 pg/mL Test 04/29/25 05:41 04/28/25 15:16 Range/Units White Blood Count 6.6 4.8-10.8 K/uL Red Blood Count 3.96 L 4.00-5.50 MIL/uL Hemoglobin 12.1 12.0-16.0 g/dL Hematocrit 37.2 36-48 % Mean Corpuscular Volume 93.9 79-99 fL Mean Corpuscular Hemoglobin 30.6 27.0-33.0 pg Mean Corpuscular Hemoglobin Concent 32.5 32.0-36.0 g/dL Red Cell Distribution Width 13.0 11.0-15.5 % Platelet Count 173 130-400 K/uL Mean Platelet Volume 10.4 7.5-10.5 fL Immature Granulocyte % (Auto) 0.5 0-1 % Neutrophils (%) (Auto) 76.9 40.0-77.0 % Lymphocytes (%) (Auto) 18.8 L 21.0-51.0 % Monocytes (%) (Auto) 3.6 3.0-13.0 % Eosinophils (%) (Auto) 0.0 0.0-8.0 % Basophils (%) (Auto) 0.2 0.0-5.0 % Neutrophils # (Auto) 5.1 1.8-7.7 K/uL Lymphocytes # (Auto) 1.2 1.0-4.8 K/uL Monocytes # (Auto) 0.2 0.1-1.0 K/uL Eosinophils # (Auto) 0.00 0.00-0.70 K/uL Basophils # (Auto) 0.01 0.00-0.20 K/uL Absolute Immature Granulocyte (auto 0.03 0-1 K/uL Nucleated Red Blood Cells 0.0 0.0-0.19 % Blood Gas Specimen Type Arterial Arterial Blood pH 7.491 H 7.350-7.450 Arterial Blood Partial Pressure CO2 37 32-45 mmHg Arterial Blood Partial Pressure O2 74.8 L 83.0-108.0 mmHg Arterial Blood HCO3 27.3 21.0-28.0 mmol/L Arterial Blood Oxygen Saturation 96.0 94.0-98.0 % Arterial Blood Base Excess 4.1 H -2.0-3.0 mmol/L Blood Gas Temperature 37.0 35.5-37.0 CELSIUS Blood Gas Flow-by 3.00 0.00-15.00 L/min Blood Gas Vent Mode NC ROOM AIR FiO2 32.0 % Blood Gas Specimen Comment LRJUAN Current Medications Medications (Trade) Dose Ordered Sig/Denia Route PRN Reason Start Time Stop Time Status Last Admin Dose Admin Acetaminophen (TYLenol 500MG TAB) 500 mg Q6H PRN PO TEMPERATURE GREATER THAN 100.5 04/28/25 14:30 05/28/25 14:29 04/28/25 21:08 500 MG Albuterol Sulfate (Proventil 0.083% 2.5mg/3ml) 2.5 mg [id number] PRN IH RESPIRATORY SYMPTOMS 04/28/25 14:30 05/28/25 14:29 Amlodipine Besylate (NorvASC 5MG TAB) 5 mg DAILY PO 04/30/25 09:00 04/30/25 11:07 DC 04/30/25 08:53 5 MG Amlodipine Besylate (NorvASC 5MG TAB) 10 mg DAILY PO 05/01/25 09:00 05/31/25 08:59 Atorvastatin Calcium (LIPItor 40MG) 40 mg HS PO 04/28/25 21:00 05/28/25 20:59 04/29/25 21:28 40 MG Benzonatate (Tessalon 100mg Caps) 100 mg Q8H PRN PO COUGH 04/28/25 15:30 05/28/25 15:29 04/29/25 09:28 100 MG Dexamethasone Sodium Phosphate (dexaMETHasone 4MG/ML 1ML VIAL) 6 mg Q24H IV 04/28/25 14:30 04/30/25 11:03 DC 04/29/25 15:20 6 MG Dextrose (D50w) 50 ml AD PRN IV HYPOGLYCEMIA PROTOCOL 04/28/25 15:00 05/28/25 14:59 Enoxaparin Sodium (Lovenox) 30 mg DAILY SQ 04/30/25 09:00 05/30/25 08:59 04/30/25 08:24 30 MG Famotidine (Pepcid 20mg Vial) 20 mg Q24H IV 04/28/25 15:00 05/28/25 14:59 04/29/25 15:20 20 MG Glucagon (Glucagon 1mg Kit) 1 mg AD PRN IM HYPOGLYCEMIA PROTOCOL 04/28/25 15:00 05/28/25 14:59 Home Med (Home Medication) 5 each HS PO 04/28/25 21:00 05/28/25 20:59 04/28/25 21:00 5 EACH Hydralazine HCl (APRESOLine 20MG INJ) 10 mg ONCE IV 04/28/25 14:30 04/28/25 15:54 DC 04/28/25 14:30 10 MG Hydralazine HCl (APRESOLine 20MG INJ) 10 mg Q6H PRN IV ADMINISTER FOR SBP > 180 04/28/25 18:00 05/28/25 17:59 04/29/25 15:23 10 MG Hydrocortisone (corTEF 20MG TAB) 10 mg DAILY PO 04/29/25 09:00 04/29/25 16:54 DC 04/29/25 09:27 10 MG Hydrocortisone (corTEF 20MG TAB) 20 mg DAILY PO 04/30/25 09:00 04/30/25 11:03 DC Hydrocortisone (corTEF 20MG TAB) 25 mg TID PO 04/30/25 14:00 05/30/25 13:59 Insulin Glargine (LANtus 100 UNITS/ML 10 ML VIAL) 10 units DAILY SQ 04/30/25 09:00 05/30/25 08:59 04/30/25 08:22 10 UNITS Insulin Human Regular (humuLIN R 100 UNIT/ML 3ML) INSULIN SLIDING SCAL... ACHS SQ 04/28/25 16:30 04/30/25 08:02 DC 04/30/25 06:39 6 UNIT Insulin Human Regular (humuLIN R 100 UNIT/ML 3ML) INSULIN SLIDING SCAL... Q4H SQ 04/30/25 08:00 05/30/25 07:59 04/30/25 12:41 14 UNIT Levofloxacin/ Dextrose 50 ml @ 50 mls/hr Q24H IVPB 04/29/25 15:00 05/09/25 14:59 04/29/25 15:20 50 MLS/HR Levofloxacin/ Dextrose 100 ml @ 100 mls/hr Q24H IV 04/28/25 14:30 04/28/25 14:47 DC Levothyroxine Sodium (SYNTHroid 25MCG TAB) 25 mcg SYN PO 04/29/25 06:30 05/29/25 06:29 04/30/25 06:15 25 MCG Lisinopril (Prinivil 10mg) 10 mg BID PO 04/28/25 15:30 04/28/25 15:50 DC Lisinopril (Prinivil 10mg) 10 mg BID PO 04/28/25 21:00 04/30/25 08:42 DC 04/28/25 21:07 10 MG Lisinopril (Prinivil 10mg) 10 mg BID PO 04/30/25 09:00 04/30/25 11:07 DC 04/30/25 08:53 10 MG Lisinopril (Prinivil 10mg) 20 mg BID PO 04/30/25 21:00 05/30/25 20:59 Lisinopril (Prinivil 5mg) 5 mg BID PO 04/28/25 21:00 04/28/25 15:24 DC Magnesium Sulfate 50 ml @ 0 mls/hr PROTOCOL PRN IV mgprotocol 04/28/25 14:30 05/28/25 14:29 Metoprolol Succinate (TopROL XL) 25 mg DAILY PO 04/29/25 09:00 04/30/25 07:59 DC 04/29/25 09:28 25 MG Metoprolol Succinate (TopROL XL) 50 mg DAILY PO 04/30/25 09:00 05/30/25 08:59 04/30/25 08:23 50 MG Pharmacy Profile Note (Pharmacy Communication) 1 each ONCE MISC 04/28/25 14:30 04/28/25 14:33 DC Potassium Chloride 100 ml @ 50 mls/hr AD PRN IV POTASSIUM PROTOCOL 04/28/25 14:30 05/28/25 14:29 Potassium Chloride 100 ml @ 100 mls/hr AD PRN IV POTASSIUM PROTOCOL 04/28/25 14:30 05/28/25 14:29 Potassium Chloride (K-Dur/Klor-Con 20meq) 20 meq AD PRN PO POTASSIUM PROTOCOL 04/28/25 14:30 05/28/25 14:29 Potassium Chloride (KCl 10% Elixir 20meq/15ml) 20 meq AD PRN PO POTASSIUM PROTOCOL 04/28/25 14:30 05/28/25 14:29 04/28/25 23:20 20 MEQ DIAGNOSTICS / RADIOLOGY: [ ] ASSESSMENT: Sepsis secondary to COVID Hypertensive urgency Acute hypoxemic respiratory failure Hypertension Diabetes mellitus type 2 Pituitary tumor s/p resection PLAN: Patient being admitted to PCCU Sepsis Secondary to COVID, acute hypoxemic respiratory failure Pulmonology has been consulted on the case Patient is started on levofloxacin Tylenol order for fever as PRN Tessalon 100 mg caps as p.r.n.. ordered for cough Monitor the a.m. labs Follow up with the ABG Maintain oxygen saturation above 92% Nebulizers and inhalers as required Dexamethasone is stopped and started on stress dose of hydrocortisone 25 mg t.i.d. Pharmacy does not contain remidesvir RT evaluation ordered for 6 minute walk test Hypertensive urgency Monitor for systolic blood pressure over 160 Hydralazine 10 mg IV PRN Hypertension, diabetes mellitus type2 Patient started on lisinopril 20 mg b.i.d. Started amlodipine 10 mg once daily Started metoprolol succinate 50 mg once daily Patient is placed on hyperglycemia protocol on 09/17 sliding scale Pituitary tumor s/p resection Pt will continue on home dose levothyroxine. Start stress dose of Cortef 25 mg t.i.d. Patient is started on soft GI diet We will follow up with pending labs GI prophylaxis with famotidine 20 mg IV b.i.d. DVT prophylaxis with the SCDs Further course of hospitalization depending on pulmonology recommendations and interventions and clinical response ATTESTATION BY PHYSICIAN I have seen and examined the patient. I reviewed the documentation, medical decision making, and treatment plan as noted by the resident provider above. I agree with the findings and plan of care. JANET LI MD, HARSHAVARDHA MD Apr 30, 2025 13:07
--- NOTE | 2025-04-30 14:18 | NUR ---
Report given to Nathanael RUBIO via telephone All questions addressed, including patient status, interventions and current plan of care Nathanael RUBIO verbalized understanding of information At this time patient is in no distress, vitals as charted, resting comfortably
--- NOTE | 2025-04-30 15:00 | NUR ---
Pt transferred via wheel chair to room 425 given in care of Nathanael RUBIO All questions answered, all belongings taken with patient At time of transfer patient in no distress, vitals as charted, and patient sitting up in chair
--- NOTE | 2025-04-30 16:30 | NUR ---
RECEIVED PT RECEIVED PT AND REPORT FROM KAYLI RUBIO WHILE PT WAS IN 425 AND NOW TO 417. PATIENT NOT SHOWING SIGNS OF DISTRESS. WILL CONTINUE TO MONITOR CONDITION.
--- NOTE | 2025-04-30 16:53 | HMCIMG ---
CT ABDOMEN/PELVIS W/O CONTRAST REASON: Painless hematuria COMPARISON: None. FINDINGS: Lung bases are clear. The heart appears to be normal. There is coronary calcification is a single coronary artery disease. There are no focal liver lesions. There is a cyst seen in the distal tip of the liver both kidneys appears to be small and atrophic. There is vascular calcification of both kidneys renal artery. There is no evidence of obstructive uropathy or calculi identified... Spleen and pancreas appear unremarkable. The gallbladder is surgically absent with clips in the gallbladder fossa.. Bowel loops appear unremarkable. This includes normal appearance of the appendix There is no evidence of free fluid or intraperitoneal air. There are no focal fluid collections. Abdominal aorta and both iliac arteries demonstrate there is severe calcification with atherosclerotic changes. Retroperitoneum appear normal as do pelvic soft tissue structures. The anterior abdominal wall is intact. Osseous structures appear unremarkable. There is a right adnexal cyst measuring 4.6 x 5.4 cm. The uterus appears to be small atrophic with calcification suggesting a myomatous changes. There is osteopenia of the osseous structure. There is disc disease seen of the lower lumbar spine at L5-S1. IMPRESSION: 1. There is a right adnexal cyst measuring 4.6 x 5.4 cm 2. Coronary calcification suggesting of coronary artery disease 3. No acute process in the CT of the abdomen and pelvis without intravenous contrast. 4. No evidence of obstructive uropathy. CT was performed with one or more following dose reduction techniques: automated exposure control, adjustment of the mA and kv according to patient's size, or use of a iterative reconstruction technique.
--- NOTE | 2025-04-30 23:00 | NUR ---
WAFFLE MATTRESS WAFFLE MATTRESS ORDER PENDING SINCE 04/30 AT 1100, PLACED ON PATIENT'S BED. PATIENT HAS NO OPEN SACRAL ULCERS, QUESTIONABLE SMALL SPOT OF REDNESS, NONBLANCHABLE, PLACED ALLEVYN DRESSING AND CLEANSED AREA.
[2025-05-01] VITALS (8 sets, daily range): BP systolic 148–164; BP diastolic 68–90; PULSE 75–86; RESP 16–18; TEMP 98.1–99.4; O2SAT 95–96
[2025-05-01 06:06] LABS: IMMATURE GRANULOCYTE ABSOLUTE 0.07 K/uL (0-1); NUCLEATED RED BLOOD CELLS 0.0 % (0.0-0.19); PLATELET COUNT (AUTO) 192 K/uL (130-400); RED BLOOD CELL COUNT(AUTO) 4.18 MIL/uL (4.00-5.50); RED CELL DISTRIBUTION WIDTH 13.3 % (11.0-15.5); WHITE BLOOD COUNT (AUTO) 10.6 K/uL (4.8-10.8)
[2025-05-01 06:22] LABS: CREATININE 0.9 mg/dL (0.5-1.0); GLOMERULAR FILTR. RATE CALC 62.0 mL/min (>90); GLUCOSE,RANDOM 118.0 mg/dL (70-105); SODIUM SERUM 147.0 mmol/L (136-145); UREA NITROGEN, BLOOD 26.0 mg/dL (7-18)
--- NOTE | 2025-05-01 07:06 | CONS ---
CONSULT NOTE: Endocrinology Consult Chief complaint:fever and cough Reason for consult: adrenal insufficiency DOS:05/01/25 HISTORY OF PRESENT ILLNESS: Patient is a 84-year-old female with past medical history of hypertension, diabetes mellitus type 2 came to the ED with chief complaint of fever and cou gh. Patient started having the symptoms since 2 days. Patient had a family gathering 2 weeks ago from which several members of the family got affected with the similar symptoms. Patient has associated chills and mild trouble breathing. patient denies nausea, vomiting, diarrhea, abdominal pain. Patient have not taken her home medication for hypertension today. On presentation to the ED patient vitals are temperature 102, pulse 102, blood pressure 225/82, saturating at 97% on room air patient's labs show WBCs 6.8, hemoglobin 13.1 And chemistries show sodium 141, potassium 3.5, creatinine 0.9, BUN 12, glucose 128, bicarb 33 Patient SARs CoV2 RNA turned out positive Patient's chest x-ray revealed clear lungs and moderate cardiomegaly Patient is being admitted with a diagnosis of COVID, sepsis, hypertensive urgency Home diabetic regimen: home meds for diabetes are not available. Hba1c 8.7% REVIEW OF SYSTEMS CONSTITUTIONAL: Denies night sweats. No unintentional weight loss reported. Admits to chills, fevers CARDIOVASCULAR: Denies any exertional angina, dyspnea on exertion, orthopnea, paroxysmal nocturnal dyspnea, palpitations, life-threatening arrhythmias, claudication. PULMONARY: Denies any phlegm/sputum, hemoptysis, pleuritic chest pain. Admits to mild shortness of breath, cough GASTROINTESTINAL: Denies any type of dysphagia to either liquids or solids. Denies nausea, vomiting, pyrosis, early satiety, abdominal pain, diarrhea, constipation, or changes in stool consistency or caliber. Denies coffee-ground emesis, hematemesis, hematochezia, or melanotic stools. GENITOURINARY: Denies frequency, urgency, nocturia, hematuria or incontinence (Storage/Irritative symptoms.) Low urinary stream, straining to void, urinary intermittency or hesitancy, splitting of the voiding stream, terminal dribbling. ONCOLOGIC: Denies personal history of malignancy. DERMATOLOGIC: Denies rashes or pruritus. PSYCHIATRIC: Denies any suicidal or homicidal ideation. Denies hallucinations. PAST MEDICAL HISTORY: Hypertension, diabetes mellitus type 2 PAST SURGICAL HISTORY: Cholecystectomy, section, pituitary tumor resection PAST SOCIAL HISTORY: Denies smoking and alcohol FAMILY HISTORY: Noncontributory Coded Allergies: No Known Drug Allergies (Unverified Allergy, Unknown, 04/28/25) ceftriaxone (Verified Allergy, Unknown, 04/28/25) metformin (Verified Allergy, Unknown, 04/28/25) morphine (Verified Allergy, Unknown, 04/28/25) sulfamethoxazole (Verified Allergy, Unknown, 04/28/25) trimethoprim (Verified Allergy, Unknown, 04/28/25) PHYSICAL EXAM GENERAL APPEARANCE: The patient is awake, alert, and oriented, in no acute cardiopulmonary distress. CHEST: Normal chest expansion. Telemetry. LUNGS: Absence of any rales, rhonchi or any wheezing. CARDIOVASCULAR: Regular. S1 and S2 normal. No appreciable rubs, murmurs or gallops. ABDOMEN: Soft, nontender, and nondistended. There is no rebound, voluntary guarding, or rigidity. : Deferred. No Trevino. EXTREMITIES: Non-edematous and not cyanotic. No clubbing. Good capillary refill. SKIN: No skin breakdown. DIAGNOSTICS / RADIOLOGY: IMAGING REPORT Signed PATIENT: IAN LOW MR#: [id number] : 1940 SEX: F AGE: 84 LOCATION: [facility] ORDER 1152 STATUS: REG REPORT#: [id number] SERVICE 1151 REASON: cough ORDERING PHYSICIAN: LISA ZIMMER MD PROCEDURE: CXR1VW - CHEST 1VW EXAM: XR Chest, 1 View. CLINICAL HISTORY: 84-year-old female with cough. COMPARISON: XR Chest 09/29/2011. FINDINGS: LUNGS: The lungs are clear. No consolidation. PLEURAL SPACES: No pleural effusion or pneumothorax. HEART: The heart size is moderately enlarged. Moderate cardiomegaly. BONES: No acute osseous abnormality. VASCULATURE: Atherosclerotic changes of the aorta. IMPRESSION: 1. Moderate cardiomegaly, similar to prior study. 2. Atherosclerotic aorta. 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 gelacio [place]. no adrenal crisis. home dose: hydrocortisone 10 mg am and 5 mg pm Pituitary tumor s/p resection Diabetes mellitus type 2, Hba1c 8.7% Home diabetic regimen: home meds for diabetes are not available. hypothyroidism Sepsis secondary to COVID Hypertensive urgency Acute hypoxemic respiratory failure Hypertension PLAN: continue po hydrocortisone 25 mg tid and gradually switch to home dose hydrocortisone. continue Lantus units daily and adjust for fasting glucose. start Regular insulin 3 units daily and adjust for post-prandial glucose. Continue medium dose sliding scale insulin. Monitor glucose q x 6 hourly. Continue carb consistent diet. Keep glucose less than 180 mg/dl. Patient can follow with her endocrinology. Thanks for allowing me to participate in patient care and will continue to follow up. Vital Signs 04/30/25 04/30/25 05/01/25 20:00 23:27 03:48 Temp 98.1 Pulse 80 Resp 17 B/P (MAP) 149/68 Pulse Ox 93 O2 Delivery Room Air O2 Flow Rate 0 FiO2 21 Hematology Labs: Test 05/01/25 05:36 Range/Units White Blood Count 10.6 4.8-10.8 K/uL Red Blood Count 4.18 4.00-5.50 MIL/uL Hemoglobin 12.7 12.0-16.0 g/dL Hematocrit 39.3 36-48 % Mean Corpuscular Volume 94.0 79-99 fL Mean Corpuscular Hemoglobin 30.4 27.0-33.0 pg Mean Corpuscular Hemoglobin Concent 32.3 32.0-36.0 g/dL Red Cell Distribution Width 13.3 11.0-15.5 % Platelet Count 192 130-400 K/uL Mean Platelet Volume 11.0 H 7.5-10.5 fL Immature Granulocyte % (Auto) 0.7 0-1 % Neutrophils (%) (Auto) 78.0 H 40.0-77.0 % Lymphocytes (%) (Auto) 16.0 L 21.0-51.0 % Monocytes (%) (Auto) 5.2 3.0-13.0 % Eosinophils (%) (Auto) 0.0 0.0-8.0 % Basophils (%) (Auto) 0.1 0.0-5.0 % Neutrophils # (Auto) 8.3 H 1.8-7.7 K/uL Lymphocytes # (Auto) 1.7 1.0-4.8 K/uL Monocytes # (Auto) 0.6 0.1-1.0 K/uL Eosinophils # (Auto) 0.00 0.00-0.70 K/uL Basophils # (Auto) 0.01 0.00-0.20 K/uL Absolute Immature Granulocyte (auto 0.07 0-1 K/uL Nucleated Red Blood Cells 0.0 0.0-0.19 % Chemistry Labs: Test 05/01/25 05:36 05/01/25 05:09 04/30/25 03:59 04/29/25 12:41 Range/Units Sodium Level 147 H 136-145 mmol/L Potassium Level 4.6 3.5-5.1 mmol/L Chloride Level 110 101-111 mmol/L Carbon Dioxide Level 31 21-32 mmol/L Blood Urea Nitrogen 26 H 7-18 mg/dL Creatinine 0.9 0.5-1.0 mg/dL Glomerular Filtration Rate Calc 62 >90 mL/min Random Glucose 118 H 70-105 mg/dL Total Calcium 9.3 8.5-10.1 mg/dL Whole Blood Glucose 112 H 70-110 MG/DL Phosphorus Level 2.9 2.5-4.9 mg/dL Magnesium Level 2.30 1.80-2.40 mg/dL Total Creatine Kinase 141 21-232 U/L B-Type Natriuretic Peptide 132 H 0-100 pg/mL Current Medications Medications (Trade) Dose Ordered Sig/Denia Route Start Time Stop Time Status Last Admin Dose Admin Amlodipine Besylate (NorvASC 5MG TAB) 5 mg DAILY PO 04/30/25 09:00 04/30/25 11:07 DC 04/30/25 08:53 5 MG Amlodipine Besylate (NorvASC 5MG TAB) 10 mg DAILY PO 05/01/25 09:00 05/31/25 08:59 Atorvastatin Calcium (LIPItor 40MG) 40 mg HS PO 04/28/25 21:00 05/28/25 20:59 04/30/25 20:24 40 MG Dexamethasone Sodium Phosphate (dexaMETHasone 4MG/ML 1ML VIAL) 6 mg Q24H IV 04/28/25 14:30 04/30/25 11:03 DC 04/29/25 15:20 6 MG Enoxaparin Sodium (Lovenox) 30 mg DAILY SQ 04/30/25 09:00 05/30/25 08:59 04/30/25 08:24 30 MG Famotidine (Pepcid 20mg Vial) 20 mg Q24H IV 04/28/25 15:00 05/28/25 14:59 04/30/25 14:33 20 MG Home Med (Home Medication) 5 each HS PO 04/28/25 21:00 05/28/25 20:59 04/28/25 21:00 5 EACH Hydralazine HCl (APRESOLine 20MG INJ) 10 mg ONCE IV 04/28/25 14:30 04/28/25 15:54 DC 04/28/25 14:30 10 MG Hydrocortisone (corTEF 20MG TAB) 10 mg DAILY PO 04/29/25 09:00 04/29/25 16:54 DC 04/29/25 09:27 10 MG Hydrocortisone (corTEF 20MG TAB) 20 mg DAILY PO 04/30/25 09:00 04/30/25 11:03 DC Hydrocortisone (corTEF 20MG TAB) 25 mg TID PO 04/30/25 14:00 05/30/25 13:59 04/30/25 20:23 25 MG Insulin Glargine (LANtus 100 UNITS/ML 10 ML VIAL) 10 units BID SQ 04/30/25 21:00 05/30/25 08:59 04/30/25 20:19 10 UNITS Insulin Glargine (LANtus 100 UNITS/ML 10 ML VIAL) 10 units DAILY SQ 04/30/25 09:00 04/30/25 15:34 DC 04/30/25 08:22 10 UNITS Insulin Human Regular (humuLIN R 100 UNIT/ML 3ML) INSULIN SLIDING SCAL... ACHS SQ 04/28/25 16:30 04/30/25 08:02 DC 04/30/25 06:39 6 UNIT Insulin Human Regular (humuLIN R 100 UNIT/ML 3ML) INSULIN SLIDING SCAL... Q4H SQ 04/30/25 08:00 05/30/25 07:59 04/30/25 20:05 6 UNIT Levofloxacin/ Dextrose 50 ml @ 50 mls/hr Q24H IVPB 04/29/25 15:00 05/09/25 14:59 04/30/25 14:32 50 MLS/HR Levofloxacin/ Dextrose 100 ml @ 100 mls/hr Q24H IV 04/28/25 14:30 04/28/25 14:47 DC Levothyroxine Sodium (SYNTHroid 25MCG TAB) 25 mcg SYN PO 04/29/25 06:30 05/29/25 06:29 05/01/25 04:19 25 MCG Lisinopril (Prinivil 10mg) 10 mg BID PO 04/28/25 15:30 04/28/25 15:50 DC Lisinopril (Prinivil 10mg) 10 mg BID PO 04/28/25 21:00 04/30/25 08:42 DC 04/28/25 21:07 10 MG Lisinopril (Prinivil 10mg) 10 mg BID PO 04/30/25 09:00 04/30/25 11:07 DC 04/30/25 08:53 10 MG Lisinopril (Prinivil 10mg) 20 mg BID PO 04/30/25 21:00 05/30/25 20:59 04/30/25 20:23 20 MG Lisinopril (Prinivil 5mg) 5 mg BID PO 04/28/25 21:00 04/28/25 15:24 DC Metoprolol Succinate (TopROL XL) 25 mg DAILY PO 04/29/25 09:00 04/30/25 07:59 DC 04/29/25 09:28 25 MG Metoprolol Succinate (TopROL XL) 50 mg DAILY PO 04/30/25 09:00 05/30/25 08:59 04/30/25 08:23 50 MG Pharmacy Profile Note (Pharmacy Communication) 1 each ONCE MISC 04/28/25 14:30 04/28/25 14:33 CHINO DAMIAN MD May 01, 2025 07:06
[2025-05-01] MEDS: amLODIPine 5 MG TAB PO SCH (08:57)
--- NOTE | 2025-05-01 13:56 | DS ---
Discharge Summary Hospital Course Summary: Patient was a 84-year-old female with past medical history of hypertension, diabetes mellitus type 2 came to the ED with chief complaint of fever and cough. Patient started having the symptoms since 2 days. Patient had a family gathering 2 weeks ago from which several members of the family got affected with the similar symptoms. Patient has associated chills and mild trouble breathing. patient denies nausea, vomiting, diarrhea, abdominal pain. Patient have not taken her home medication for hypertension today. On presentation to the ED patient vitals are temperature 102, pulse 102, respiratory rate of 18, blood pressure 225/82, saturating at 97% on room air Patient's labs show WBCs 6.8, hemoglobin 13.1 And chemistries show sodium 141, potassium 3.5, creatinine 0.9, BUN 12, glucose 128, bicarb 33. Patient SARs CoV2 RNA turned out positive Patient's chest x-ray revealed clear lungs and moderate cardiomegaly Patient is being admitted with a diagnosis of COVID, sepsis, hypertensive urgency Upon admission patient was using 3 L of oxygen via nasal cannula, afebrile, and had mild shortness of breath. Patient was started on IV levofloxacin Q24 and dexamethasone 6 mg. Patient had an episode of hypertensive urgency in which her blood pressure went up to 225/82 while in the ED that was controlled by IV hydralazine. After reconciling her home medications she was started on lisinopril 10 mg b.i.d., amlodipine 5 mg OD, metoprolol succinate 25 mg once daily. Despite restarting on her own medications she had elevated blood pressures in the ranges of 160s to 180s, hence increased her hypertensive medication doses to lisinopril 20, amlodipine 10, and metoprolol succinate 50. Patient has a past history of pituitary resection on 15mg of hydrocortisone at home. Due to acute stress brought by COVID-19 and hospital admission patient was started on hydrocortisone 25 mg t.i.d. and her dexamethasone was stopped as per recommended guidelines. And was maintained on insulin sliding scale with a long-acting Lantus and rapid acting insulin before meals. A urine analysis on admission showed large occult blood patient denied dysuria, flank pain, and suprapubic pain. A CT abdomen was ordered which revealed a right adnexal cyst measuring 4.6 into 5.4 cm, without evidence of obstructive uropathy. Patient was advised to follow up with the urologist on outpatient basis for evaluating painless hematuria. Patient was the off oxygen on 04/30/2025 and responded well and maintained a saturation more than 93% on room air. However her saturation dropped to below 90 when she fell asleep. Patient has been responding well and on the next day patient remained on room air and saturating over 93%. Patient's blood pressure and blood glucose have stabilized. Respiratory evaluation was placed who performed bed exercises instead of 6 minute walk test as patient had COVID-19 and she maintained her saturation over 95%. We will discharged home on lisinopril 20 mg b.i.d., amlodipine 10 mg OD, metoprolol succinate 50 mg OD, Cortef 5 mg daily and levofloxacin 750 mg for 5 days. Patient was advised to m aintain home isolation for 10 days, wear mask in common places, maintain adequate hydration, continue her home medications as prescribed. Denial Resolution Specialist(s): Dr. Carlos, aba tutor Dr. Amador, Machine Tool Technician Instructor Date Patient Seen: Apr 29, 2025 Time of Visit: 15:48 Supervising Physician: Dr. Carlos Reason for Consultation: COVID PROBLEM LIST: Sepsis secondary to COVID Hypertensive urgency Acute hypoxemic respiratory failure Hypertension Diabetes mellitus type 2 Pituitary tumor s/p resection HPI: Patient is an 84-year-old female with a past medical history significant for hypertension, diabetes mellitus type 2, who was admitted by the primary team for sepsis secondary to COVID. Patient is hypoxic, at the time of my evaluation c urrently on3 L nasal cannula. Patient denies any chest pain, no cough for sputum production. Patient denies any use of oxygen at home. White count today is 6.6, hemoglobin 12.1, renal function normal at 1.2 creatinine today. Patient has already been started on dexamethasone 6 mg, as well as IV levofloxacin. Nebulizers have been added to the chart PRN. Pharmacy has been consulted for Paxlovid treatment. Plan Continue supplemental O2 Continue levofloxacin Continue dexamethasone 6 mg for 10 days Pending pharmacy consultation for Paxlovid requirement Patient may benefit from home O2 if she is ready to discharge prior to being on room air PRN medication for cough PAST MEDICAL HX: see above PAST SURGICAL HX: noncontributory SOCIAL HISTORY: No tobacco, ETOH, or illicit drug use Coded Allergies: No Known Drug Allergies (Unverified Allergy, Unknown, 04/28/25) ceftriaxone (Verified Allergy, Unknown, 04/28/25) metformin (Verified Allergy, Unknown, 04/28/25) morphine (Verified Allergy, Unknown, 04/28/25) sulfamethoxazole (Verified Allergy, Unknown, 04/28/25) trimethoprim (Verified Allergy, Unknown, 04/28/25) REVIEW OF SYSTEMS: 12 point ROS reviewed with patient. Pertinent positives mentioned above. Otherwise negative. PHYSICAL EXAM: GENERAL: alert, weak, awake oriented x 3 HEENT: EOMI, Sclera non icteric, moist mucosa NECK: Supple, no JVD, trachea midline LUNGS: Clear breath sounds bilaterally. No wheezes HEART: Regular rate and rhythm. Normal S1 and S2, without murmurs ABD: Abdomen soft, nontender. Bowel sounds present EXT: No clubbing cyanosis or edema NEURO: Alert and oriented to person, follows commands Vital Signs (last 8hr) Date Time Temp Pulse Resp B/P (MAP) Pulse Ox O2 Delivery O2 Flow Rate FiO2 04/29/25 15:30 71 18 133/53 98 Nasal Cannula 2.0 04/29/25 15:15 78 18 166/64 98 Nasal Cannula 2.0 04/29/25 15:00 98.6 74 18 200/61 98 Nasal Cannula 2.0 04/29/25 14:42 97.9 70 20 176/65 99 Nasal Cannula* 1 24 04/29/25 12:00 97.9 74 19 144/67 95 Nasal Cannula* 1 24 LABS: Hematology Labs: Test 04/29/25 05:41 04/28/25 12:09 Range/Units White Blood Count 6.6 4.8-10.8 K/uL Red Blood Count 3.96 L 4.00-5.50 MIL/uL Hemoglobin 12.1 12.0-16.0 g/dL Hematocrit 37.2 36-48 % Mean Corpuscular Volume 93.9 79-99 fL Mean Corpuscular Hemoglobin 30.6 27.0-33.0 pg Mean Corpuscular Hemoglobin Concent 32.5 32.0-36.0 g/dL Red Cell Distribution Width 13.0 11.0-15.5 % Platelet Count 173 130-400 K/uL Mean Platelet Volume 10.4 7.5-10.5 fL Immature Granulocyte % (Auto) 0.5 0-1 % Neutrophils (%) (Auto) 76.9 40.0-77.0 % Lymphocytes (%) (Auto) 18.8 L 21.0-51.0 % Monocytes (%) (Auto) 3.6 3.0-13.0 % Eosinophils (%) (Auto) 0.0 0.0-8.0 % Basophils (%) (Auto) 0.2 0.0-5.0 % Neutrophils # (Auto) 5.1 1.8-7.7 K/uL Lymphocytes # (Auto) 1.2 1.0-4.8 K/uL Monocytes # (Auto) 0.2 0.1-1.0 K/uL Eosinophils # (Auto) 0.00 0.00-0.70 K/uL Basophils # (Auto) 0.01 0.00-0.20 K/uL Absolute Immature Granulocyte (auto 0.03 0-1 K/uL Nucleated Red Blood Cells 0.0 0.0-0.19 % Erythrocyte Sedimentation Rate 31 H 0-30 MM/HR Chemistry Labs: Test 04/29/25 15:10 04/29/25 12:41 04/29/25 05:41 04/28/25 12:09 Range/Units Whole Blood Glucose 366 H 70-110 MG/DL B-Type Natriuretic Peptide 132 H 0-100 pg/mL Sodium Level 140 136-145 mmol/L Potassium Level 5.3 H 3.5-5.1 mmol/L Chloride Level 104 101-111 mmol/L Carbon Dioxide Level 31 21-32 mmol/L Blood Urea Nitrogen 19 H 7-18 mg/dL Creatinine 1.2 H 0.5-1.0 mg/dL Glomerular Filtration Rate Calc 44 >90 mL/min Random Glucose 290 #H 70-105 mg/dL Total Calcium 8.6 8.5-10.1 mg/dL Hemoglobin A1c 8.7 H 4.0-6.0 % Estimated Average Glucose (eAG) 203 H 70-126 mg/dL Lactic Acid Level 1.3 0.8-2.5 mmol/L Magnesium Level 1.90 1.80-2.40 mg/dL Troponin I High Sensitivity 18 4-50 ng/L C-Reactive Protein, Quantitative 33.30 H 0.5-3.0 mg/L Procalcitonin < 0.05 L 0.05-0.5 ng/mL Thyroid Stimulating Hormone (TSH) 0.31 L 0.36-3.74 uIU/mL DIAGNOSTICS / RADIOLOGY RESULTS: [ ] PLAN NEURO: Minimize central acting medications as possible. Maintain fall precautions, adequate lighting during the day PULMONARY: Supplemental 02 as needed. Maintain aspiration precautions at all times CARDIOVASCULAR: Follow hemodynamics. Vital signs per facility protocol GI & NUTRITION: Continue with nutritional support. Continue stool softeners and laxatives as needed. KIDNEYS & ELECTROLYTES: Strict monitoring of intake, output and overall fluid balance. Avoid nephrotoxic medications to the extent possible. Medications to be dosed according to renal function. Monitor electrolytes and replace as needed ENDOCRINE: Maintain blood glucose between 100-180 at all times. Hypoglycemia protocol in place INFECTIOUS DISEASE: Trend temperature, WBC and procalcitonin level Follow cultures, deescalate antibiotics as soon as possible. Panculture if new onset fever ONCOLOGY/HEMATOLOGY/COAGULATION: Monitor for s/s of bleeding Monitor hemoglobin, coagulation studies as needed SKIN: Pressure ulcer prevention per facility protocol Specialty mattress ORTHO/REHAB: Continue PT/OT Prophylaxis: Continue GI and DVT prophylaxis Code Status: Full Resuscitation Disposition: TBD Other: Total patient care time exceeds 35 minutes excluding all procedures. MATTHEW HAMPTON Apr 29, 2025 15:51 Electronically Signed by: MATTHEW MCDANIELS04/29/25 4071 Electronically Co-Signed by: [place] [id number] CONSULT NOTE: Vital Signs 04/30/25 04/30/25 05/01/25 20:00 23:27 03:48 Temp 98.1 Pulse 80 Resp 17 B/P (MAP) 149/68 Pulse Ox 93 O2 Delivery Room Air O2 Flow Rate 0 FiO2 21 Hematology Labs: Test 05/01/25 05:36 Range/Units White Blood Count 10.6 4.8-10.8 K/uL Red Blood Count 4.18 4.00-5.50 MIL/uL Hemoglobin 12.7 12.0-16.0 g/dL Hematocrit 39.3 36-48 % Mean Corpuscular Volume 94.0 79-99 fL Mean Corpuscular Hemoglobin 30.4 27.0-33.0 pg Mean Corpuscular Hemoglobin Concent 32.3 32.0-36.0 g/dL Red Cell Distribution Width 13.3 11.0-15.5 % Platelet Count 192 130-400 K/uL Mean Platelet Volume 11.0 H 7.5-10.5 fL Immature Granulocyte % (Auto) 0.7 0-1 % Neutrophils (%) (Auto) 78.0 H 40.0-77.0 % Lymphocytes (%) (Auto) 16.0 L 21.0-51.0 % Monocytes (%) (Auto) 5.2 3.0-13.0 % Eosinophils (%) (Auto) 0.0 0.0-8.0 % Basophils (%) (Auto) 0.1 0.0-5.0 % Neutrophils # (Auto) 8.3 H 1.8-7.7 K/uL Lymphocytes # (Auto) 1.7 1.0-4.8 K/uL Monocytes # (Auto) 0.6 0.1-1.0 K/uL Eosinophils # (Auto) 0.00 0.00-0.70 K/uL Basophils # (Auto) 0.01 0.00-0.20 K/uL Absolute Immature Granulocyte (auto 0.07 0-1 K/uL Nucleated Red Blood Cells 0.0 0.0-0.19 % Chemistry Labs: Test 05/01/25 05:36 05/01/25 05:09 04/30/25 03:59 04/29/25 12:41 Range/Units Sodium Level 147 H 136-145 mmol/L Potassium Level 4.6 3.5-5.1 mmol/L Chloride Level 110 101-111 mmol/L Carbon Dioxide Level 31 21-32 mmol/L Blood Urea Nitrogen 26 H 7-18 mg/dL Creatinine 0.9 0.5-1.0 mg/dL Glomerular Filtration Rate Calc 62 >90 mL/min Random Glucose 118 H 70-105 mg/dL Total Calcium 9.3 8.5-10.1 mg/dL Whole Blood Glucose 112 H 70-110 MG/DL Phosphorus Level 2.9 2.5-4.9 mg/dL Magnesium Level 2.30 1.80-2.40 mg/dL Total Creatine Kinase 141 21-232 U/L B-Type Natriuretic Peptide 132 H 0-100 pg/mL Current Medications Medications (Trade) Dose Ordered Sig/Denia Route Start Time Stop Time Status Last Admin Dose Admin Amlodipine Besylate (NorvASC 5MG TAB) 5 mg DAILY PO 04/30/25 09:00 04/30/25 11:07 DC 04/30/25 08:53 5 MG Amlodipine Besylate (NorvASC 5MG TAB) 10 mg DAILY PO 05/01/25 09:00 05/31/25 08:59 Atorvastatin Calcium (LIPItor 40MG) 40 mg HS PO 04/28/25 21:00 05/28/25 20:59 04/30/25 20:24 40 MG Dexamethasone Sodium Phosphate (dexaMETHasone 4MG/ML 1ML VIAL) 6 mg Q24H IV 04/28/25 14:30 04/30/25 11:03 DC 04/29/25 15:20 6 MG Enoxaparin Sodium (Lovenox) 30 mg DAILY SQ 04/30/25 09:00 05/30/25 08:59 04/30/25 08:24 30 MG Famotidine (Pepcid 20mg Vial) 20 mg Q24H IV 04/28/25 15:00 05/28/25 14:59 04/30/25 14:33 20 MG Home Med (Home Medication) 5 each HS PO 04/28/25 21:00 05/28/25 20:59 04/28/25 21:00 5 EACH Hydralazine HCl (APRESOLine 20MG INJ) 10 mg ONCE IV 04/28/25 14:30 04/28/25 15:54 DC 04/28/25 14:30 10 MG Hydrocortisone (corTEF 20MG TAB) 10 mg DAILY PO 04/29/25 09:00 04/29/25 16:54 DC 04/29/25 09:27 10 MG Hydrocortisone (corTEF 20MG TAB) 20 mg DAILY PO 04/30/25 09:00 04/30/25 11:03 DC Hydrocortisone (corTEF 20MG TAB) 25 mg TID PO 04/30/25 14:00 05/30/25 13:59 04/30/25 20:23 25 MG Insulin Glargine (LANtus 100 UNITS/ML 10 ML VIAL) 10 units BID SQ 04/30/25 21:00 05/30/25 08:59 04/30/25 20:19 10 UNITS Insulin Glargine (LANtus 100 UNITS/ML 10 ML VIAL) 10 units DAILY SQ 04/30/25 09:00 04/30/25 15:34 DC 04/30/25 08:22 10 UNITS Insulin Human Regular (humuLIN R 100 UNIT/ML 3ML) INSULIN SLIDING SCAL... ACHS SQ 04/28/25 16:30 04/30/25 08:02 DC 04/30/25 06:39 6 UNIT Insulin Human Regular (humuLIN R 100 UNIT/ML 3ML) INSULIN SLIDING SCAL... Q4H SQ 04/30/25 08:00 05/30/25 07:59 04/30/25 20:05 6 UNIT Levofloxacin/ Dextrose 50 ml @ 50 mls/hr Q24H IVPB 04/29/25 15:00 05/09/25 14:59 04/30/25 14:32 50 MLS/HR Levofloxacin/ Dextrose 100 ml @ 100 mls/hr Q24H IV 04/28/25 14:30 04/28/25 14:47 DC Levothyroxine Sodium (SYNTHroid 25MCG TAB) 25 mcg SYN PO 04/29/25 06:30 05/29/25 06:29 05/01/25 04:19 25 MCG Lisinopril (Prinivil 10mg) 10 mg BID PO 04/28/25 15:30 04/28/25 15:50 DC Lisinopril (Prinivil 10mg) 10 mg BID PO 04/28/25 21:00 04/30/25 08:42 DC 04/28/25 21:07 10 MG Lisinopril (Prinivil 10mg) 10 mg BID PO 04/30/25 09:00 04/30/25 11:07 DC 04/30/25 08:53 10 MG Lisinopril (Prinivil 10mg) 20 mg BID PO 04/30/25 21:00 05/30/25 20:59 04/30/25 20:23 20 MG Lisinopril (Prinivil 5mg) 5 mg BID PO 04/28/25 21:00 04/28/25 15:24 DC Metoprolol Succinate (TopROL XL) 25 mg DAILY PO 04/29/25 09:00 04/30/25 07:59 DC 04/29/25 09:28 25 MG Metoprolol Succinate (TopROL XL) 50 mg DAILY PO 04/30/25 09:00 05/30/25 08:59 04/30/25 08:23 50 MG Pharmacy Profile Note (Pharmacy Communication) 1 each ONCE MISC 04/28/25 14:30 04/28/25 14:33 CHINO DAMIAN MD May 01, 2025 07:06 Electronically Signed by: Electronically Co-Signed by: Procedure(s): PATIENT: IAN CARLOS MR#: [id number] : 1940 SEX: F AGE: 84 LOCATION: [facility] ORDER 1152 STATUS: REG ER REPORT#: [id number] SERVICE 115 REASON: cough ORDERING PHYSICIAN: LISA ZIMMER MD PROCEDURE: CXR1VW - CHEST 1VW EXAM: XR Chest, 1 View. CLINICAL HISTORY: 84-year-old female with cough. COMPARISON: XR Chest 09/29/2011. FINDINGS: LUNGS: The lungs are clear. No consolidation. PLEURAL SPACES: No pleural effusion or pneumothorax. HEART: The heart size is moderately enlarged. Moderate cardiomegaly. BONES: No acute osseous abnormality. VASCULATURE: Atherosclerotic changes of the aorta. IMPRESSION: 1. Moderate cardiomegaly, similar to prior study. 2. Atherosclerotic aorta. /[place] DICTATED BY: KANDACE ALVAREZ MD DATE: 04/28/251424 ELECTRONICALLY SIGNED BY: KANDACE ALVAREZ MD DATE: 04/28/251424 PATIENT: IAN CARLOS MR#: [id number] : 1940 SEX: F AGE: 84 LOCATION: [facility] ORDER 1221 STATUS: ADM IN REPORT#: [id number] SERVICE 1217 REASON: Covid Sepsis;R/o fluid overload ORDERING PHYSICIAN: DANIKA HUDSON MD PROCEDURE: CXR1VW - CHEST 1VW CHEST 1VW REASON: Covid Sepsis;R/o fluid overload COMPARISON: Prior study from 04/28/2025 is available. FINDINGS: Single view of the chest was obtained. Lungs are clear. Heart size is normal. There is uncoiling atherosclerotic change of thoracic aorta. There is no pulmonary vascular congestion. Mediastinum and bony thorax appear unremarkable. The bony thorax demonstrate mild osteopenia. There is elevation of the right hemidiaphragm. There is a surgical clips in the right upper quadrant from prior cholecystectomy. IMPRESSION: 1. No evidence of airspace consolidation or pulmonary venous congestion DICTATED BY: ELMIRA BELTRE MD DATE: 04/29/25 125 ELECTRONICALLY SIGNED BY: ELMIRA BELTRE MD DATE: 04/29/25 1258 PATIENT: IAN CARLOS MR#: [id number] : 1940 SEX: F AGE: 84 LOCATION: [facility] ORDER 1102 STATUS: ADM IN REPORT#: [id number] SERVICE 1052 REASON: Painless hematuria ORDERING PHYSICIAN: DANIKA HUDSON MD PROCEDURE: ABD PEL WO - CT ABDOMEN/PELVIS W/O CONTRAST CT ABDOMEN/PELVIS W/O CONTRAST REASON: Painless hematuria COMPARISON: None. FINDINGS: Lung bases are clear. The heart appears to be normal. There is coronary calcification is a single coronary artery disease. There are no focal liver lesions. There is a cyst seen in the distal tip of the liver both kidneys appears to be small and atrophic. There is vascular calcification of both kidneys renal artery. There is no evidence of obstructive uropathy or calculi identified... Spleen and pancreas appear unremarkable. The gallbladder is surgically absent with clips in the gallbladder fossa.. Bowel loops appear unremarkable. This includes normal appearance of the appendix There is no evidence of free fluid or intraperitoneal air. There are no focal fluid collections. Abdominal aorta and both iliac arteries demonstrate there is severe calcification with atherosclerotic changes. Retroperitoneum appear normal as do pelvic soft tissue structures. The anterior abdominal wall is intact. Osseous structures appear unremarkable. There is a right adnexal cyst measuring 4.6 x 5.4 cm. The uterus appears to be small atrophic with calcification suggesting a myomatous changes. There is osteopenia of the osseous structure. There is disc disease seen of the lower lumbar spine at L5-S1. IMPRESSION: 1. There is a right adnexal cyst measuring 4.6 x 5.4 cm 2. Coronary calcification suggesting of coronary artery disease 3. No acute process in the CT of the abdomen and pelvis without intravenous contrast. 4. No evidence of obstructive uropathy. CT was performed with one or more following dose reduction techniques: automated exposure control, adjustment of the mA and kv according to patient's size, or use of a iterative reconstruction technique. DICTATED BY: ELMIRA BELTRE MD DATE: 04/30/25 1629 ELECTRONICALLY SIGNED BY: ELMIRA BELTRE MD DATE: 04/30/25 165 Assessment/Plan: ASSESSMENT: Sepsis secondary to COVID 19 pneumonia, resolving Hypertensive urgency, resolved Acute hypoxemic respiratory failure, resolved Hypertension Diabetes mellitus type 2 Pituitary tumor s/p resection on hydrocortisone Discharge Instructions: ADMISSION DATE : 04/28/2025 DISCHARGE DATE: 05/01/2025 DISPOSITION : Home CONDITION : Stable ADVISORY APPLICATION DEVELOPER(S) : Dr. Carlos, aba tutor FOLLOW UP APPOINTMENT(S) : f/u with PCP in one 2-3 days, follow up with sleep study for evaluation of obstructive sleep apnea, follow up with urologist for evaluation of painless hematuria PROCEDURES: None IMAGING (S) : report attached to summary MICROBIOLOGY : report attached to summary ACTIVITY : ad bettina HOME MEDICATIONS : Continued Home Medications: Active Scripts Lisinopril (Lisinopril) 10 Mg Tablet, 20 MG PO BID for 30 Days, #60 TAB Prov:JOSELYN GLEZ MD 05/01/25 Amlodipine Besylate (Norvasc 5Mg Tab) 5 Mg Tablet, 10 MG PO DAILY, #30 TAB Prov:JOSELYN GLEZ MD 05/01/25 Levofloxacin (Levofloxacin) 750 Mg Tablet, 1 TAB PO DAILY for 5 Days, #5 TAB 0 Refills Prov:JOSELYN GLEZ MD 05/01/25 Metoprolol Succinate (Metoprolol Succinate) 50 Mg Tab.er.24h, 1 TAB PO DAILY for 30 Days, #30 TAB 0 Refills Prov:JOSELYN GLEZ MD 05/01/25 Reported Medications Hydrocortisone (Cortef) 10 Mg Tablet, 1 TAB PO DAILY for 30 Days, #30 TAB 0 Refills 04/28/25 Hydrocortisone (Cortef) 5 Mg Tablet, 5 MG PO HS, TAB 04/28/25 Atorvastatin Calcium (Atorvastatin Calcium) 40 Mg Tablet, 1 TAB PO HS for 30 Days, #30 TAB 0 Refills 04/28/25 Levothyroxine Sodium (Levothyroxine) 25 Mcg Capsule, 1 CAP PO DAILY for 30 Days, #30 CAP 0 Refills 04/28/25 Nitroglycerin (Nitroglycerin) 0.4 Mg Tab.subl, 1 TAB SL AD for chest pain, #25 TAB 0 Refills 1st sign of attack; may repeat every 5 mins; if pain persists after 3 in 15 min, medical attention is recommended 04/28/25 Discontinued Reported Medications Metoprolol Succinate (Metoprolol Succinate) 25 Mg Tab.er.24h, 1 TAB PO DAILY for 30 Days, #30 TAB 0 Refills 04/28/25 Captopril (Captopril) 25 Mg Tablet, 1 TAB PO BID for 30 Days, #60 TAB 0 Refills 04/28/25 Hum Insulin NPH/Reg Insulin Hm (Humulin 70/30 Kwikpen) 100 Unit/Ml (70-30) Insuln.pen, 0 SQ BID, SYRINGE 04/28/25 New Medications: Levofloxacin (Levofloxacin) 750 Mg Tablet 1 TAB PO DAILY for 5 Days, #5 TAB 0 Refills Metoprolol Succinate (Metoprolol Succinate) 50 Mg Tab.er.24h 1 TAB PO DAILY for 30 Days, #30 TAB 0 Refills Amlodipine Besylate (Norvasc 5Mg Tab) 5 Mg Tablet 10 MG PO DAILY, #30 TAB Lisinopril (Lisinopril) 10 Mg Tablet 20 MG PO BID for 30 Days, #60 TAB Continued Medications: Atorvastatin Calcium (Atorvastatin Calcium) 40 Mg Tablet 1 TAB PO HS for 30 Days, #30 TAB 0 Refills Hydrocortisone (Cortef) 5 Mg Tablet 5 MG PO HS, TAB Hydrocortisone (Cortef) 10 Mg Tablet 1 TAB PO DAILY for 30 Days, #30 TAB 0 Refills Levothyroxine Sodium (Levothyroxine) 25 Mcg Capsule 1 CAP PO DAILY for 30 Days, #30 CAP 0 Refills Nitroglycerin (Nitroglycerin) 0.4 Mg Tab.subl 1 TAB SL AD for chest pain, #25 TAB 0 Refills 1st sign of attack; may repeat every 5 mins; if pain persists after 3 in 15 min, medical attention is recommended Discontinued Medications: Captopril (Captopril) 25 Mg Tablet 1 TAB PO BID for 30 Days, #60 TAB 0 Refills Metoprolol Succinate (Metoprolol Succinate) 25 Mg Tab.er.24h 1 TAB PO DAILY for 30 Days, #30 TAB 0 Refills Time spent arranging discharge: 1-30 minutes ATTESTATION BY PHYSICIAN I have seen and examined the patient. I reviewed the documentation, medical decision making, and treatment plan as noted by the resident provider above. I agree with the findings and plan of care. JANET LI MD, HARSHAVARDHA MD May 01, 2025 13:56
[2025-05-01] MEDS ORDERED: LISI10TA24 PO (14:14)
[2025-05-01] MEDS ORDERED: AMLO5TAB4 PO (14:14)
[2025-05-01] MEDS ORDERED: METO-391 PO (14:14)
[2025-05-01] MEDS ORDERED: LEVO750T90 PO (14:14)
--- NOTE | 2025-05-01 16:29 | NUR ---
DISCHARGE PIV DC'D PATIENT INFORMED TO CALL PRIMARY DOCTOR TO SCHEDULE APPOINTMENT DUE TO OFFICE BEING CLOSED TODAY PATIENT INFORMED TO DO A FOLLOW UP APPOINTMENT WITH A UROLOGIST AND HAVE A SLEEP STUDY SCHEDULED QUESTIONS ANSWERED PRIOR TO DISCHARG
--- NOTE | 2025-05-01 20:52 | PN ---
[facility] PROGRESS NOTE Date Patient Seen: May 01, 2025 Time of Visit: 20:52 Supervising Physician: Dr. Lovell Reason for Consultation: COVID PROBLEM LIST: Sepsis secondary to COVID, on room air Hypertensive urgency, resolved Acute hypoxemic respiratory failure, resolved Hypertension Diabetes mellitus type 2 Pituitary tumor s/p resection INTERVAL HISTORY: Patient evaluated at bedside, currently on room air. Patient is comfortable, she denies any chest pain at this time. There has been no nausea or vomiting and patient has been tolerating her diet well. Per patient primary team is pending discharge at some point today. She has been cleared from a pulmonary standpoint with recommendations to follow up in 1-2 weeks of the [facility] for evaluation of the patient's respiratory status following COVID resolution. White count today is 10.6 with a hemoglobin of 12.7 patient's respirations are normal and unlabored. Plan Supplemental O2 if required, patient currently on room air No indication for dexamethasone as patient is normoxic Follow up at [facility] after discharge Remainder of medical management per primary team REVIEW OF SYSTEMS: General: No malaise or fever. Neurological: No fainting episodes or seizures. HEENT: No nasal congestion or nasal secretion. Respiratory: No cough, shortness of breath, or wheezing Cardiac: No chest pain or palpitations. Gastrointestinal: No vomiting or diarrhea. Genitourinary: No dysuria hematuria. Skin: No rashes or lesions. Hematological: No bruises or bleeding. Musculoskeletal: No joint pains or arthralgias. Psychiatric: No depression or panic attacks. PHYSICAL EXAM: GENERAL: alert, weak, awake oriented x 3 HEENT: EOMI, Sclera non icteric, moist mucosa NECK: Supple, no JVD, trachea midline LUNGS: Clear breath sounds bilaterally. No wheezes HEART: Regular rate and rhythm. Normal S1 and S2, without murmurs ABD: Abdomen soft, nontender. Bowel sounds present EXT: No clubbing cyanosis or edema NEURO: Alert and oriented to person, follows commands Vital Signs (last 8hr) Date Time Temp Pulse Resp B/P (MAP) Pulse Ox O2 Delivery O2 Flow Rate FiO2 05/01/25 16:00 Room Air 21 LABS: Hematology Labs: Test 05/01/25 05:36 Range/Units White Blood Count 10.6 4.8-10.8 K/uL Red Blood Count 4.18 4.00-5.50 MIL/uL Hemoglobin 12.7 12.0-16.0 g/dL Hematocrit 39.3 36-48 % Mean Corpuscular Volume 94.0 79-99 fL Mean Corpuscular Hemoglobin 30.4 27.0-33.0 pg Mean Corpuscular Hemoglobin Concent 32.3 32.0-36.0 g/dL Red Cell Distribution Width 13.3 11.0-15.5 % Platelet Count 192 130-400 K/uL Mean Platelet Volume 11.0 H 7.5-10.5 fL Immature Granulocyte % (Auto) 0.7 0-1 % Neutrophils (%) (Auto) 78.0 H 40.0-77.0 % Lymphocytes (%) (Auto) 16.0 L 21.0-51.0 % Monocytes (%) (Auto) 5.2 3.0-13.0 % Eosinophils (%) (Auto) 0.0 0.0-8.0 % Basophils (%) (Auto) 0.1 0.0-5.0 % Neutrophils # (Auto) 8.3 H 1.8-7.7 K/uL Lymphocytes # (Auto) 1.7 1.0-4.8 K/uL Monocytes # (Auto) 0.6 0.1-1.0 K/uL Eosinophils # (Auto) 0.00 0.00-0.70 K/uL Basophils # (Auto) 0.01 0.00-0.20 K/uL Absolute Immature Granulocyte (auto 0.07 0-1 K/uL Nucleated Red Blood Cells 0.0 0.0-0.19 % Chemistry Labs: Test 05/01/25 11:51 05/01/25 05:36 04/30/25 03:59 Range/Units Whole Blood Glucose 153 H 70-110 MG/DL Sodium Level 147 H 136-145 mmol/L Potassium Level 4.6 3.5-5.1 mmol/L Chloride Level 110 101-111 mmol/L Carbon Dioxide Level 31 21-32 mmol/L Blood Urea Nitrogen 26 H 7-18 mg/dL Creatinine 0.9 0.5-1.0 mg/dL Glomerular Filtration Rate Calc 62 >90 mL/min Random Glucose 118 H 70-105 mg/dL Total Calcium 9.3 8.5-10.1 mg/dL Phosphorus Level 2.9 2.5-4.9 mg/dL Magnesium Level 2.30 1.80-2.40 mg/dL Total Creatine Kinase 141 21-232 U/L DIAGNOSTICS / RADIOLOGY RESULTS: [ ] PLAN NEURO: Minimize central acting medications as possible. Fall Precautions. Well lighted room through the day and minimize interruptions through the night to prevent acute delirium. PULMONARY: Supplemental 02 as needed Titrate Fio2 to keep Spo2 > or = 90% DuoNebs and CPT as needed IS hourly while awake for pulmonary hygiene Out of bed to chair as tolerated CARDIOVASCULAR: Follow hemodynamics. Titrate vasopressor to keep MAP >65 or systolic blood pressure >95mmHg DRIPS: none LINES: PIV GI & NUTRITION: Continue nutritional support Aspirations precautions Prokinetic agents and laxatives as needed KIDNEYS & ELECTROLYTES: Strict monitoring of intake and output Daily weights Avoid nephrotoxic agents Monitor electrolytes and replace as needed Goal urine output of 30mL/hr or 0.5mL/kg/hr ENDOCRINE: Maintain blood glucose between 100-180 at all times. Insulin sliding scale for blood glucose management INFECTIOUS DISEASE: Trend temperature. Ott-culture if febrile. Micro: COVID-19 positive Antibiotics: Levaquin HEMATOLOGY & COAGULATION: Monitor H&H. Keep Hgb > 7 Transfuse 1 unit of PRBC for Hgb < 7 Transfuse 1 pack of platelets of platelets < 20, 000 Watch for any signs and symptoms of bleeding SKIN: Pressure ulcer prevention per facility protocol Rehab: PT/OT Prophylaxis: GI: Pepcid DVT: Lovenox Code Status: Full Resuscitation Disposition: Medical floor Other: Total patient care time exceeds 35 minutes excluding all procedures. Case was discussed and seen with my supervising physician. The above plan was formulated and agreed upon. MATTHEW HAMPTON May 01, 2025 20:52
== END 2025-05-01 17:30 | disposition home or self-care (01) | DRG 871 ==
LOC: EDH 11:35 → EDHIP 14:21 → 2CH 04-29 14:43 → 4CH 04-30 15:52
PROVIDERS: ADMIT Internal Medicine; ATTEND Internal Medicine
DX: A41.89 Other specified sepsis (principal); J12.82 Pneumonia due to coronavirus disease 2019; J96.01 Acute respiratory failure with hypoxia; U07.1 COVID-19; E27.49 Other adrenocortical insufficiency; E11.9 Type 2 diabetes mellitus without complications; D35.2 Benign neoplasm of pituitary gland; I16.0 Hypertensive urgency; E03.9 Hypothyroidism, unspecified; I10 Essential (primary) hypertension; I70.0 Atherosclerosis of aorta; Z79.899 Other long term (current) drug therapy; Z88.2 Allergy status to sulfonamides; Z88.3 Allergy status to other anti-infective agents; Z88.5 Allergy status to narcotic agent; Z88.1 Allergy status to other antibiotic agents; Z88.8 Allergy status to other drugs, medicaments and biological substances; Z98.891 History of uterine scar from previous surgery; Z90.49 Acquired absence of other specified parts of digestive tract
CPT/HCPCS: 36415; 36600; 71045; 74176; 80048; 81001; 82550; 82803; 82948; 83036; 83605; 83735; 83880; 84100; 84145; 84443; 84484; 85025; 85651; 86140; 87040; 87635; 87804; 87880; 93005; 94664; 94760; 96360; 99285; G0378; J0360; J1100; J1650; J1815; J1956; J3490; J7030